=== PATIENT | male | born 1960 | race American Indian/Alaskan Native ===

== ENCOUNTER 2016-03-05 03:27 | Inpatient (IN) | payer MEDICARE ==
--- NOTE | 2016-03-05 03:36 | Emergency Department Report ---
HPI - General Time Seen by Provider: 03/05/16 03:30 - HPI HPI: Room 23 Patient is a male brought in for bleeding from dialysis access site. The patient states he was in his car when he suddenly began bleeding from his left upper extremity fistula. The patient states it has not been used for approximately one week as his current access is now in his left groin. EMS states they believe the gastroenterology nurse practitioner called them and they found the patient in his car with a large amount of blood coming from his left upper extremity. The site was dressed and bleeding was controlled. Location: Left upper extremity Duration: Unknown Quality: [see above] Severity: Moderate Modifying factors: [see above] Context: [see above] Mode of transportation: EMS ED Past Medical Hx - Past Medical History Hx Hypertension: Yes Hx Congestive Heart Failure: Yes Hx Renal Disease: Yes (end-stage renal disease) - Family History Family history: no significant - Social History Substance Use Type: None ED Review of Systems ROS: Stated complaint: GENERAL WEAKNESS Other details as noted in HPI Comment: All other systems reviewed and negative Constitutional: denies: chills, fever Eyes: denies: eye pain, eye discharge, vision change ENT: denies: ear pain, throat pain Respiratory: denies: cough, shortness of breath, wheezing Cardiovascular: denies: chest pain, palpitations Endocrine: no symptoms reported Gastrointestinal: denies: abdominal pain, nausea, diarrhea Genitourinary: denies: urgency, dysuria Musculoskeletal: denies: back pain, joint swelling, arthralgia Skin: other (bleeding from left upper extremity fistula) Neurological: denies: headache, weakness, paresthesias Psychiatric: denies: anxiety, depression Hematological/Lymphatic: denies: easy bleeding, easy bruising Physical Exam - Physical Exam Physical Exam: GENERAL: The patient is well-developed well-nourished male lying on stretcher not appear to be in acute distress. [] HEENT: Normocephalic. Atraumatic. Extraocular motions are intact. Patient has moist mucous membranes. NECK: Supple. Trachea midline CHEST/LUNGS: Clear to auscultation. There is no respiratory distress noted. HEART/CARDIOVASCULAR: Regular. There is no tachycardia. There is no gallop rub or murmur. ABDOMEN: Abdomen is soft, nontender. Patient has normal bowel sounds. There is no abdominal distention. SKIN: There is no rash. There is no edema. There is no diaphoresis. Left upper extremity dressing removed to reveal hemostatic lesion overlying the left upper extremity fistula. He'll a stat was placed over the wound and left upper extremity was redressed with gauze NEURO: The patient is awake and oriented. The patient is cooperative. The patient has normal speech MUSCULOSKELETAL: There is no evidence of acute injury. ED Course - Consultations Consultation #1: 03/05/16 05:32 Case discussed with nephrology/ Dr. Rincon-will arrange for hemodialysis Consultation #2: 03/05/16 05:33 Hospitalist notified ED Medical Decision Making - Lab Data Result diagrams: 03/05/16 03:37 03/05/16 03:37 Laboratory Tests 03/05/16 03/05/16 03/05/16 03:37 03:37 03:37 WBC 3.4 L RBC 2.81 L Hgb 7.8 L Hct 23.7 L MCV 84 MCH 28 MCHC 33 RDW 18.3 H Plt Count 136 L Lymph % (Auto) 20.6 Sampson % (Auto) 16.0 H Eos % (Auto) 8.9 H Baso % (Auto) 1.3 Lymph # 0.7 L Sampson # 0.5 Eos # 0.3 Baso # 0.0 Seg Neutrophils % 53.2 Seg Neutrophils # 1.8 PT 13.6 INR 1.05 APTT 40.6 H Sodium 141 Potassium 6.9 H* Chloride 96.5 L Carbon Dioxide 21 L Anion Gap 30 BUN 109 H Creatinine 20.3 H Estimated GFR 3 BUN/Creatinine Ratio 5.36 Glucose 91 Calcium 8.5 Plasma/Serum Alcohol 03/05/16 03:37 WBC RBC Hgb Hct MCV MCH MCHC RDW Plt Count Lymph % (Auto) Sampson % (Auto) Eos % (Auto) Baso % (Auto) Lymph # Sampson # Eos # Baso # Seg Neutrophils % Seg Neutrophils # PT INR APTT Sodium Potassium Chloride Carbon Dioxide Anion Gap BUN Creatinine Estimated GFR BUN/Creatinine Ratio Glucose Calcium Plasma/Serum Alcohol < 0.01 - EKG Data -: EKG Interpreted by [place] EKG shows normal: sinus rhythm Rate: normal - EKG Data When compared to previous EKG there are: previous EKG unavailable Interpretation: nonspecific ST-T wave jarret (slightly peaked T waves laterally) - Differential Diagnosis hypovolemia, coagulopathy Critical care attestation.: If time is entered above; I have spent that time in minutes in the direct care of this critically ill patient, excluding procedure time. ED Disposition Clinical Impression: Renal dialysis device, implant, or graft complication, Hyperkalemia, End stage renal disease Disposition: OP ADMITTED IP TO THIS HOSP Is pt being admited?: Yes Does the pt Need Aspirin: No Condition: Stable Referrals: PRIMARY CARE, [Primary Care Provider] - 3-5 Days Time of Disposition: 05:05 (awaiting nephrology callback)
[2016-03-05 03:50] LABS: Basophils % (Auto) 1.3 % (0.0-1.8); Eosinophils % (Auto) 8.9 % (0.0-4.3); Hematocrit 23.7 % (35.5-45.6); Hemoglobin 7.8 gm/dl (11.8-15.2); Mean Corpuscular HGB Conc 33 % (32-34); Mean Corpuscular Hemoglobin 28 pg (28-32); Mean Corpuscular Volume 84 fl (84-94); Platelet Count 136 K/mm3 (140-440); Red Blood Count 2.81 M/mm3 (3.65-5.03); Red Cell Distribution Width 18.3 % (13.2-15.2); White Blood Count 3.4 K/mm3 (4.5-11.0)
[2016-03-05 04:02] LABS: BUN/Creatinine Ratio 5.36; Calcium 8.5 mg/dL (8.4-10.2); Chloride 96.5 mmol/L (98-107); INR 1.05 (0.87-1.13)
[2016-03-05 04:03] LABS: Partial Thromboplastin Time 40.6 Sec. (24.2-36.6)
[2016-03-05 04:08] LABS: Potassium 6.9 mmol/L (3.6-5.0)
[2016-03-05] MEDS ORDERED: CALCIUM GLUCONATE 1,000 MG in NACL 0.9% 100 ML IV ONE (04:09)
[2016-03-05] MEDS ORDERED: SODIUM BICARBONATE IV ONE ×2 (04:09→04:17)
[2016-03-05] MEDS ORDERED: D50W (25GM) IV ONE ×4 (04:11→08:00)
[2016-03-05] MEDS ORDERED: PROVENTIL IH ONE (05:02)
--- NOTE | 2016-03-05 05:48 | History and Physical Report ---
History of Present Illness Date of examination: 03/05/16 Chief complaint: left arm bleeding History of present illness: Patient is a 55-year-old man with a history of end-stage renal disease on hemodialysis, hypertension, CHF and anemia of chronic disease who presents with left arm hemodialysis site bleeding that started today. He denies any severe arm pains or pressure. He has severe constant bleeding without any systemic symptoms such as loss of consciousness, severe headaches chest pain. He does have mild shortness of breath with minimal activity. He has not had hemodialysis since his discharge on 02/14/2016. He was admitted on 01/17/2016 discharge on 02/14/2016. Hemoglobin at that time was 7.9. Patient has 2 medical record numbers and account numbers. Which has not been merged in this system. Please refer to for prior records and hospitalizations. Past History Past Medical History: other (as hpi) Past Surgical History: Other (av graft) Social history: full code. denies: smoking, alcohol abuse, prescription drug abuse, IV drug use Family history: hypertension Medications and Allergies Allergies Allergy/AdvReac Type Severity Reaction Status Date / Time No Known Allergies Allergy Unverified 03/05/16 03:53 Review of Systems All systems: negative (as HPI and all other ROS reviewed and negative.) Exam - Physical Exam Narrative exam: GEN: WDWN, NAD, AWAKE, ALERT, ORIENTATED 3 HEENT: NCAT, PERRL, EOMI, OP CLEAR NECK: SUPPLE, NO THYROMEGALY, NO JVD, NO LAD CVS: RRR, NORMAL S1S2 LUNGS/CHEST: Basilar crackles, NORMAL CHEST EXPANSION B, diminish AIR ENTRY B ABD: SOFT NTND, GBS, NO REBOUND OR GUARDING, left femoral Vas-Cath in place EXT/SKIN: NO SIGNIFICANT EDEMA OR RASH, left upper arm gauzes dressing applied without bloody discharge MSK: FROM X 4 EXTREMITIES NEURO: CN 2-12 GROSSLY INTACT, NO FOCAL DEFICITS PSY: CALM - Constitutional Vitals: Temp Pulse Resp BP Pulse Ox 97.5 F L 95 H 24 169/99 100 03/05/16 03:32 03/05/16 05:23 03/05/16 05:23 03/05/16 05:00 03/05/16 05:00 Results - Labs CBC & Chem 7: 03/05/16 03:37 03/05/16 03:37 Labs: Abnormal lab results 03/05/16 03/05/16 03/05/16 Range/Units 03:37 03:37 03:37 WBC 3.4 L (4.5-11.0) K/mm3 RBC 2.81 L (3.65-5.03) M/mm3 Hgb 7.8 L (11.8-15.2) gm/dl Hct 23.7 L (35.5-45.6) % RDW 18.3 H (13.2-15.2) % Plt Count 136 L (140-440) K/mm3 [place] % (Auto) 16.0 H (0.0-7.3) % Eos % (Auto) 8.9 H (0.0-4.3) % Lymph # 0.7 L (1.2-5.4) K/mm3 APTT 40.6 H (24.2-36.6) Sec. Potassium 6.9 H* (3.6-5.0) mmol/L Chloride 96.5 L (98-107) mmol/L Carbon Dioxide 21 L (22-30) mmol/L BUN 109 H (9-20) mg/dL Creatinine 20.3 H (0.8-1.5) mg/dL - Imaging and Cardiology EKG: image reviewed Assessment and Plan Patient is a 55-year-old man with a history of end-stage renal disease on hemodialysis, hypertension, CHF and anemia of chronic disease who presents with left arm hemodialysis site bleeding that started today. He denies any severe arm pains or pressure. He has severe constant bleeding without any systemic symptoms such as loss of consciousness, severe headaches, chest pain. Bleeding was controlled with guazes dressing. He does have mild shortness of breath with minimal activity. He has not had hemodialysis since his discharge on 2015. He was admitted on 01/17/2016 discharge on 02/14/2016. Hemoglobin at that time was 7.9. Patient has 2 medical record numbers and account numbers. Which has not been merged in this system. Please refer to for prior records and hospitalizations. 02/10/16: REPAIR OF RUPTURED PSEUDOANEURYSM, PLACEMENT OF LEFT COMMON FEMORAL VEIN VAS-CATH and 02/11 1. Ultrasound-guided access of the right common femoral vein 2. Fluoroscopic-guided placement of a 5 Stateless sheath in the right common femoral vein, 3. Venography of the right lower extremity 4. Ultrasound-guided access of the left common femoral vein 5. Venography of the left lower extremity. 6. Venography of the with selection of the IVC 7. Angioplasty of the infrarenal, suprarenal, intrahepatic, and suprahepatic portions of the inferior vena cava, left common iliac vein, left external iliac vein with a 12 mm angioplasty balloon. 8. Venography of the superior vena cava was selection of the superior vena cava 8. Selection of an azygos vein collateral extending to the neck with venography 9. Ultrasound-guided access of the right internal jugular vein 10. Venography of the right internal jugular vein 11. Fluoroscopic guided placement of a 44 cm tip to cuff tunneled left common femoral vein dual lumen hemodialysis catheter 12. Fluoroscopic guided removal of the left common femoral vein non-tunneled non-cuffed triple lumen hemodialysis catheter 1. End-stage renal disease needing hemodialysis. Fluid overload 2. Hyperkalemia: Cocktail plus Calcium given 3. Accelerated hypertension: IV hydralazine 4. Acute blood loss anemia from hemodialysis access malfunctioning: Consult Dr. Arriaga, transfuse 1 unit, monitor h/h closely 5. Pancytopenia 6. DVT prophylaxis: SCDs only due to the blood loss which appears to be controlled Full code Disposition: Inpatient care The high probability of a clinically significant, sudden or life threatening deterioration of the [neurologic,cardiac] system(s) required my full and direct attention, intervention and personal management. The aggregate critical care time was [ 35 ] minutes. This time is in addition to time spent performing reported procedures but includes the following: [x] Data Review and interpretation [x] Patient assessment and monitoring of vital signs [x] Documentation [x] Medication orders and management
[2016-03-05] MEDS ORDERED: TYLENOL PO PRN (06:07)
[2016-03-05] MEDS ORDERED: PROVENTIL IH PRN (06:08)
[2016-03-05 07:20] LABS: BUN/Creatinine Ratio 5.63; Calcium 8.1 mg/dL (8.4-10.2)
[2016-03-05 07:21] LABS: Potassium 5.9 mmol/L (3.6-5.0)
--- NOTE | 2016-03-05 07:56 | Admit Criteria Form ---
Admission Criteria Documentation: RENAL FAILURE, CHRONIC Clinical Indications for Admission to Inpatient Care (Place 'X' for any and all applicable criteria): Admission is indicated for ANY ONE of the following (1)(2)(3)(4)(5): [X ]I. Inpatient admission required rather than observation care (Use Renal Failure, Chronic: Observation Care Criteria as appropriate) because of ANY ONE of the following: [ ]a) Volume overload or uremic symptoms (eg, clinically significant pulmonary edema, hypertension, pericarditis, acidosis) too severe for, or not responsive (eg, for over 24 hours) to emergency department or observation care dialysis or treatment regimen (11) [ ]b) Hemodynamic instability that is severe or persistent [ ]c) Respiratory distress that is severe or persistent (11) [ X]d) Clinically significant electrolyte abnormality that requires inpatient care (eg,hyperkalemia with severe ECG findings)[B] [ ]e) Supplement O2 or respiratory therapy for over 24hrs that is performable only in acute inpatient setting [ ]f) Continuous IV infusion of anticoagulation, platelet inhibitor, vasoactive, or Antiarrhythmic medication (15), [ ]g) Pulmonary artery catheter monitoring [ ]h) Temporary pacemaker placement [ ]i) Emergent pericardiocentesis [ ]j) Other condition, treatment or monitoring requiring inpatient admission [ ]II. Unexplained syncope [A] [ ]III. Recurrent seizures [ ]IV. Severe infections not treatable in outpatient setting (eg, peritonitis)(9 ) [ ]V. Cardiac arrhythmias of immediate concern [ ]. Encephalopathy [ ]VII.Bleeding abnormalities (eg, platelet dysfunction) with active (eg, gastrointestinal) bleeding Extended stay beyond goal length of stay may be needed for (3)(4)(35)(36): [ ]a) Continuing uremic complications [ ]b) Comorbidities or complications The original [employer] content created by [employer] has been revised. The portions of the content which have been revised are identified through the use of italic text or in bold, and [facility] has neither reviewed nor approved the modified material. All other unmodified content is copyright [employer]. Please see references footnoted in the original [facility] edition 2016 Admission Criteria Met: Yes
--- NOTE | 2016-03-05 09:22 | Consultation ---
History of Present Illness - Reason for Consult Consult date: 03/05/16 Bleeding AV graft - History of Present Illness Patient is a 55-year-old male with a history of end-stage renal disease who presents with recurrent bleeding from his left upper extremity fistula. 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 The fistula at that time was allowed to thrombose. Evaluation of the fistula today demonstrates thrombus throughout the fistula with 20 along the inferior aspect of the fistula which may be allowing a trickle of flow through the fistula. There is no bleeding at the time of examination. The pseudoaneurysm appears necrotic. A pressure dressing was reapplied. No distal hand ischemia. Past History Past Medical History: dialysis, ESRD, other (as hpi) Past Surgical History: Other (av graft) Social history: full code. denies: smoking, alcohol abuse, prescription drug abuse, IV drug use Family history: hypertension Medications and Allergies Allergies Allergy/AdvReac Type Severity Reaction Status Date / Time No Known Allergies Allergy Unverified 03/05/16 03:53 Active Meds: Active Medications Acetaminophen (Tylenol) 650 mg PO Q6H PRN PRN Reason: Non Cardiac Pain or Temp>100.5 Albuterol (Proventil) 2.5 mg IH Q4HRT PRN PRN Reason: Shortness Of Breath Hydralazine HCl (Apresoline) 10 mg IV Q4H PRN PRN Reason: Blood Pressure Ondansetron HCl (Zofran) 4 mg IV Q4H PRN PRN Reason: Nausea And Vomiting Review of Systems All systems: negative Exam - Constitutional Vitals: Temp Pulse Resp BP Pulse Ox 97.5 F L 95 H 24 182/102 99 03/05/16 03:32 03/05/16 05:23 03/05/16 05:23 03/05/16 06:00 03/05/16 06:00 General appearance: Present: no acute distress - EENT Eyes: Present: EOM intact ENT: hearing intact - Neck Neck: Present: supple, normal ROM - Respiratory Respiratory effort: normal - Extremities Extremities: abnormal (per HPI) - Abdominal General gastrointestinal: Present: deferred Male genitourinary: Present: deferred - Rectal Rectal Exam: deferred - Psychiatric Psychiatric: cooperative Results - Labs CBC & Chem 7: 03/05/16 03:37 03/05/16 06:41 Labs: Abnormal lab results 03/05/16 03/05/16 Range/Units 06:31 06:41 Potassium 5.9 H (3.6-5.0) mmol/L Carbon Dioxide 21 L (22-30) mmol/L BUN 107 H (9-20) mg/dL Creatinine 19.0 H (0.8-1.5) mg/dL Glucose 135 H (75-100) mg/dL POC Glucose 44 L (70-105) Calcium 8.1 L (8.4-10.2) mg/dL Assessment and Plan Patient with recurrent bleeding from his left upper extremity fistula at the site of the pseudoaneurysm. The patient will need surgical removal of this pseudoaneurysm versus ligation to prevent recurrent bleeds. [place] not bleeding The pseudoaneurysm surface appears necrotic. Would recommend initiation of IV antibiotics.
--- NOTE | 2016-03-05 09:25 | Consultation ---
History of Present Illness - Reason for Consult Consult date: 03/05/16 end stage renal disease, hyperkalemia - History of Present Illness Patient is a 55 yo AAM with a history significant for Hypertension, ESRD on hemodialysis for the past 12 yrs, CHF and Anemia who presents with left arm AV fistula bleeding that started on the day of admission. 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 Patient was evaluated by during this admission. He do not have a established hemodialysis unit due to long standing medical non- compliance. according to the previous admission notes he was setup for home hospice. He was last dialyzed on 02/26/16 at [facility]. Patient reports exertional SOB. No h/o PRETTY, N, V, D, abd pain, fever, trauma, dizziness , CP or leg swelling. Patient has 2 medical record numbers and account numbers , which has not been merged in this system. Please also refer to for prior records and hospitalizations. Past History Past Medical History: anemia, dialysis, ESRD, hypertension, other (as hpi) Past Surgical History: Other (av graft) Social history: full code. denies: smoking, alcohol abuse, prescription drug abuse, IV drug use Family history: hypertension Medications and Allergies Allergies Allergy/AdvReac Type Severity Reaction Status Date / Time No Known Allergies Allergy Unverified 03/05/16 03:53 Active Meds: Active Medications Acetaminophen (Tylenol) 650 mg PO Q6H PRN PRN Reason: Non Cardiac Pain or Temp>100.5 Albuterol (Proventil) 2.5 mg IH Q4HRT PRN PRN Reason: Shortness Of Breath Hydralazine HCl (Apresoline) 10 mg IV Q4H PRN PRN Reason: Blood Pressure Ondansetron HCl (Zofran) 4 mg IV Q4H PRN PRN Reason: Nausea And Vomiting Review of Systems Constitutional: no weight loss, no weight gain, no fever, no chills, no weakness Ears, nose, mouth and throat: no sinus pressure, no sinus pain, no epistaxis Cardiovascular: dyspnea on exertion, no chest pain, no orthopnea, no edema, no syncope, no lightheadedness Respiratory: dyspnea on exertion, no cough, no shortness of breath Gastrointestinal: no nausea, no vomiting, no diarrhea Genitourinary Male: no hematuria Musculoskeletal: no redness of joints Integumentary: no jaundice Neurological: no paralysis, no seizures, no syncope Hematologic/Lymphatic: no easy bruising Allergic/Immunologic: no anaphylaxis Exam - Vital Signs Vital signs: Vital Signs Pulse Resp 97 H 10 L 03/05/16 03:26 03/05/16 03:26 - General Appearance General appearance: well-developed, well-nourished, appears stated age, other ( no distress, left groin hemodialysis catheter) EENT: PERRL, mucous membranes moist, hearing intact, vision intact Neck: Present: neck supple, trachea midline Respiratory: Rales, Other (fullness over both supraclavicular areas, dilated veins over the left side of the back) Heart: regular, S1S2, no murmurs Gastrointestinal: Present: normoactive bowel sounds. Absent: tenderness, distended, guarding Integumentary: no rash, warm and dry Neurologic: no focal deficit, no asterixis, alert and oriented x3, CN 3-12 intact Musculoskeletal: Present: other (no edema) Psychiatric: mood/affect appropriate, cooperative Results - Lab Results 03/05/16 03:37 03/05/16 06:41 Most recent lab results Calcium 8.1 mg/dL (8.4-10.2) L 03/05/16 06:41 Assessment and Plan - Patient Problems (1) Hyperkalemia Current Visit: Yes Status: Acute Plan to address problem: Hemodialysis orders placed. Compliance encouraged. (2) End stage renal disease Current Visit: Yes Status: Acute Plan to address problem: Patient require hemodialysis threee times a week. Discussed compliance. Not sure if any of the hemodialysis units will take him. (3) Renal dialysis device, implant, or graft complication Current Visit: Yes Status: Acute Plan to address problem: Evaluated by . (4) Anemia Current Visit: Yes Status: Acute Plan to address problem: Epogen as needed. (5) Hypertension Current Visit: Yes Status: Acute (6) Non-compliance with renal dialysis Current Visit: Yes Status: Acute
[2016-03-05] MEDS ORDERED: NACL 0.9% 1000 ML 100 ML IV PRN (09:43)
[2016-03-05] MEDS ORDERED: ZEMPLAR IV PRN (09:43)
[2016-03-05] MEDS: HEPARIN IV PRN (13:42)
[2016-03-06 07:20] LABS: Hemoglobin 6.1 gm/dl (11.8-15.2); Mean Corpuscular HGB Conc 31 % (32-34); Mean Corpuscular Volume 84 fl (84-94); Platelet Count 117 K/mm3 (140-440); Red Blood Count 2.35 M/mm3 (3.65-5.03); Red Cell Distribution Width 17.9 % (13.2-15.2)
[2016-03-06 07:31] LABS: Mean Corpuscular Hemoglobin 26 pg (28-32); White Blood Count 2.2 K/mm3 (4.5-11.0)
[2016-03-06 07:32] LABS: Hematocrit 19.7 % (35.5-45.6)
[2016-03-06] MEDS ORDERED: NACL 0.9% 500 ML 500 ML IV ONE (07:38)
[2016-03-06 07:39] LABS: BUN/Creatinine Ratio 3.63; Calcium 8.5 mg/dL (8.4-10.2); Chloride 98.1 mmol/L (98-107); Potassium 5.3 mmol/L (3.6-5.0)
[2016-03-06] MEDS: APRESOLINE IV PRN ×2 (08:47→14:57)
[2016-03-06 08:53] LABS: Blastocytes % (Manual) 0 %; Hypochromasia 1+
[2016-03-06 08:54] LABS: Anisocytosis 1+; Diff Status Complete; Platelet Estimate Appears Decreased
--- NOTE | 2016-03-06 10:14 | Progress Note ---
Assessment and Plan Assessment and plan: Severe anemia - Multifactorial - Transfuse 2 units of blood - Monitor H&H closely - Monitor for active bleeding Bleeding from any fistula site/ ruptured pseudoaneurysm, necrotic - Patient is on IV cefepime and vancomycin - Vascular surgery consulted - Not visible active bleeding End-stage renal disease on hemodialysis - Nephrology is on board History Interval history: Patient denied any further bleeding Hospitalist Physical - Physical exam Narrative exam: Not in cardiopulmonary distress. The patient appeared well nourished and normally developed. Vital signs as documented. Head exam is unremarkable. No scleral icterus . Neck is without jugular venous distension, thyromegaly, or carotid bruits. Lungs are clear to auscultation. Cardiac exam reveals regular rate and Rhythm. First and second heart sounds normal. No murmurs, rubs or gallops. Abdominal exam reveals normal bowel sounds, no masses, no organomegaly and no aortic enlargement. Extremities are nonedematous and both femoral and pedal pulses are normal. MOVERS: Alert and oriented 3. No focal weakness. - Constitutional Vitals: Temp Pulse Resp BP Pulse Ox 98.6 F 94 H 20 183/104 94 03/06/16 04:57 03/06/16 04:57 03/06/16 04:57 03/06/16 08:47 03/06/16 04:57 General appearance: Present: no acute distress Results - Labs CBC & Chem 7: 03/06/16 06:38 03/06/16 06:38 Labs: Laboratory Last Values WBC 2.2 K/mm3 (4.5-11.0) L 03/06/16 06:38 RBC 2.35 M/mm3 (3.65-5.03) L 03/06/16 06:38 Hgb 6.1 gm/dl (11.8-15.2) L 03/06/16 06:38 Hct 19.7 % (35.5-45.6) L* 03/06/16 06:38 MCV 84 fl (84-94) 03/06/16 06:38 MCH 26 pg (28-32) L 03/06/16 06:38 MCHC 31 % (32-34) L 03/06/16 06:38 RDW 17.9 % (13.2-15.2) H 03/06/16 06:38 Plt Count 117 K/mm3 (140-440) L 03/06/16 06:38 Lymph % (Auto) 20.6 % (13.4-35.0) 03/05/16 03:37 [place] % (Auto) Efficiency Expert 03/06/16 06:38 Eos % (Auto) 8.9 % (0.0-4.3) H 03/05/16 03:37 Baso % (Auto) 1.3 % (0.0-1.8) 03/05/16 03:37 Lymph # 0.7 K/mm3 (1.2-5.4) L 03/05/16 03:37 [place] # 0.5 K/mm3 (0.0-0.8) 03/05/16 03:37 Eos # 0.3 K/mm3 (0.0-0.4) 03/05/16 03:37 Baso # 0.0 K/mm3 (0.0-0.1) 03/05/16 03:37 Add Manual Diff Complete 03/06/16 06:38 Total Counted 100 03/06/16 06:38 Seg Neutrophils % 53.2 % (40.0-70.0) 03/05/16 03:37 Seg Neuts % (Manual) 60.0 % (40.0-70.0) 03/06/16 06:38 Band Neutrophils % 0 % 03/06/16 06:38 Lymphocytes % (Manual) 13.0 % (13.4-35.0) L 03/06/16 06:38 Reactive Lymphs % (Man) 0 % 03/06/16 06:38 Monocytes % (Manual) 14.0 % (0.0-7.3) H 03/06/16 06:38 Eosinophils % (Manual) 11.0 % (0.0-4.3) H 03/06/16 06:38 Metamyelocytes % 1.0 % 03/06/16 06:38 Myelocytes % 1.0 % 03/06/16 06:38 Promyelocytes % 0 % 03/06/16 06:38 Blast Cells % 0 % 03/06/16 06:38 Nucleated RBC % Not Reportable 03/06/16 06:38 Seg Neutrophils # 1.8 K/mm3 (1.8-7.7) 03/05/16 03:37 Seg Neutrophils # Man 1.3 K/mm3 (1.8-7.7) L 03/06/16 06:38 Band Neutrophils # 0.0 K/mm3 03/06/16 06:38 Lymphocytes # (Manual) 0.3 K/mm3 (1.2-5.4) L 03/06/16 06:38 Abs React Lymphs (Man) 0.0 K/mm3 03/06/16 06:38 Monocytes # (Manual) 0.3 K/mm3 (0.0-0.8) 03/06/16 06:38 Eosinophils # (Manual) 0.2 K/mm3 (0.0-0.4) 03/06/16 06:38 Basophils # (Manual) 0.0 K/mm3 (0.0-0.1) 03/06/16 06:38 Metamyelocytes # 0.0 K/mm3 03/06/16 06:38 Myelocytes # 0.0 K/mm3 03/06/16 06:38 Promyelocytes # 0.0 K/mm3 03/06/16 06:38 Blast Cells # 0.0 K/mm3 03/06/16 06:38 WBC Morphology Not Reportable 03/06/16 06:38 Hypersegmented Neuts Not Reportable 03/06/16 06:38 Hyposegmented Neuts Not Reportable 03/06/16 06:38 Hypogranular Neuts Not Reportable 03/06/16 06:38 Smudge Cells Not Reportable 03/06/16 06:38 Toxic Granulation Not Reportable 03/06/16 06:38 Toxic Vacuolation Not Reportable 03/06/16 06:38 Dohle Bodies Not Reportable 03/06/16 06:38 Pelger-Huet Anomaly Not Reportable 03/06/16 06:38 Jimbo Rods Not Reportable 03/06/16 06:38 Platelet Estimate Appears decreased 03/06/16 06:38 Clumped Platelets Not Reportable 03/06/16 06:38 Plt Clumps, EDTA Not Reportable 03/06/16 06:38 Large Platelets Not Reportable 03/06/16 06:38 Giant Platelets Not Reportable 03/06/16 06:38 Platelet Satelliting Not Reportable 03/06/16 06:38 Plt Morphology Comment Not Reportable 03/06/16 06:38 RBC Morphology Not Reportable 03/06/16 06:38 Dimorphic RBCs Not Reportable 03/06/16 06:38 Polychromasia Not Reportable 03/06/16 06:38 Hypochromasia 1+ 03/06/16 06:38 Poikilocytosis Not Reportable 03/06/16 06:38 Anisocytosis 1+ 03/06/16 06:38 Microcytosis Not Reportable 03/06/16 06:38 Macrocytosis Not Reportable 03/06/16 06:38 Spherocytes Not Reportable 03/06/16 06:38 Pappenheimer Bodies Not Reportable 03/06/16 06:38 Sickle Cells Not Reportable 03/06/16 06:38 Target Cells Not Reportable 03/06/16 06:38 Tear Drop Cells Not Reportable 03/06/16 06:38 Ovalocytes Not Reportable 03/06/16 06:38 Helmet Cells Not Reportable 03/06/16 06:38 [place] Bodies Not Reportable 03/06/16 06:38 [place] Rings Not Reportable 03/06/16 06:38 [place] Cells Not Reportable 03/06/16 06:38 Bite Cells Not Reportable 03/06/16 06:38 Crenated Cell Not Reportable 03/06/16 06:38 Elliptocytes Not Reportable 03/06/16 06:38 Acanthocytes (Spur) Not Reportable 03/06/16 06:38 Rouleaux Not Reportable 03/06/16 06:38 Hemoglobin C Crystals Not Reportable 03/06/16 06:38 Schistocytes Not Reportable 03/06/16 06:38 Malaria parasites Not Reportable 03/06/16 06:38 Venkat Bodies Not Reportable 03/06/16 06:38 Hem Pathologist Commnt No 03/06/16 06:38 PT 13.6 Sec. (12.2-14.9) 03/05/16 03:37 INR 1.05 (0.87-1.13) 03/05/16 03:37 APTT 40.6 Sec. (24.2-36.6) H 03/05/16 03:37 Sodium 141 mmol/L (137-145) 03/06/16 06:38 Potassium 5.3 mmol/L (3.6-5.0) H 03/06/16 06:38 Chloride 98.1 mmol/L (98-107) 03/06/16 06:38 Carbon Dioxide 24 mmol/L (22-30) 03/06/16 06:38 Anion Gap 24 mmol/L 03/06/16 06:38 BUN 52 mg/dL (9-20) H 03/06/16 06:38 Creatinine 14.3 mg/dL (0.8-1.5) H 03/06/16 06:38 Estimated GFR 4 ml/min 03/06/16 06:38 BUN/Creatinine Ratio 3.63 % 03/06/16 06:38 Glucose 68 mg/dL (75-100) L 03/06/16 06:38 POC Glucose 44 (70-105) L 03/05/16 06:31 Calcium 8.5 mg/dL (8.4-10.2) 03/06/16 06:38 Plasma/Serum Alcohol < 0.01 gm% (0-0.07) 03/05/16 03:37 Blood Type O POSITIVE 03/05/16 03:37 Antibody Screen Negative 03/05/16 03:37
[2016-03-06] MEDS ORDERED: NACL 0.9% 1000 ML 100 ML IV PRN (12:16)
--- NOTE | 2016-03-06 12:19 | Progress Note ---
Assessment and Plan - Patient Problems (1) Hyperkalemia Current Visit: Yes Status: Acute Plan to address problem: Patient was last dialyzed yesterday. Plan to do hemodialysis today. (2) End stage renal disease Current Visit: Yes Status: Acute Plan to address problem: Continue hemodialysis as planned. (3) Renal dialysis device, implant, or graft complication Current Visit: Yes Status: Acute Plan to address problem: Followed by Vascular. (4) Anemia Current Visit: Yes Status: Acute Plan to address problem: 2 units of PRBC and Epogen. (5) Hypertension Current Visit: Yes Status: Acute (6) Non-compliance with renal dialysis Current Visit: Yes Status: Acute Plan to address problem: Compliance encouraged. Subjective Date of service: 03/06/16 Interval history: Patient is feeling better. Objective - Vital Signs Vital signs: Vital Signs - 12hr 03/06/16 03/06/16 03/06/16 04:57 08:00 08:47 Temperature 98.6 F 98.5 F Pulse Rate [ 94 H 90 From Monitor] Respiratory 20 20 Rate Blood Pressure 183/104 Blood Pressure 126/80 183/104 [Left Arm] O2 Sat by Pulse 94 96 Oximetry - General Appearance General appearance: well-developed, well-nourished, other (no distress) EENT: PERRL, mucous membranes moist, hearing intact, vision intact Neck: supple Respiratory: Present: Clear to Ascultation Cardiology: regular, S1S2, no murmurs Gastrointestinal: normoactive bowel sounds, no tenderness, no distended, no guarding Integumentary: no rash, warm and dry Neurologic: no focal deficit, no asterixis, alert and oriented x3, CN 3-12 intact Musculoskeletal: other (no edema, left groin hemodialysis catheter) Psychiatric: mood/affect appropriate, cooperative - Lab 03/06/16 06:38 03/06/16 06:38 Most recent lab results Calcium 8.5 mg/dL (8.4-10.2) 03/06/16 06:38
--- NOTE | 2016-03-06 15:49 | Progress Note ---
Assessment and Plan 55-year-old male with rupture of left AV access pseudoaneurysm requiring suturing in the emergency room with subsequent necrosis of the pseudoaneurysm and thrombosis of most of the AV access. There is a weak pulse noted in the proximal portion of the AV access. Dressing change to pressure dressing. Told nurses not to change this dressing. Consented for explantation on Tuesday. Subjective Date of service: 03/06/16 Principal diagnosis: AVF/AVG malfunction Interval history: Left AV graft/AV fistula site pseudoaneurysm necrotic. There has been strikethrough bleeding on the kerlex dressing overlying the site. This is not a compressive dressing. Replaced dressing with a right Telfa, 4 x 4's, and Coban. Left radial pulse palpable prior to dressing change and after dressing change. Patient describes no distress site after dressing placed. No pain at the site. Objective - Constitutional Vitals: Vital Signs - 12hr 03/06/16 03/06/16 03/06/16 04:57 08:00 08:47 Temperature 98.6 F 98.5 F Pulse Rate Pulse Rate [ 94 H 90 From Monitor] Respiratory 20 20 Rate Blood Pressure 183/104 Blood Pressure 126/80 183/104 [Left Arm] O2 Sat by Pulse 94 96 Oximetry 03/06/16 03/06/16 03/06/16 12:38 12:53 13:23 Temperature 98.1 F 97.9 F 97.9 F Pulse Rate 82 79 84 Pulse Rate [ From Monitor] Respiratory 16 16 16 Rate Blood Pressure 165/86 131/84 142/78 Blood Pressure [Left Arm] O2 Sat by Pulse 98 Oximetry 03/06/16 03/06/16 03/06/16 13:53 14:23 14:53 Temperature 98.1 F 98.2 F 97.9 F Pulse Rate 86 84 86 Pulse Rate [ From Monitor] Respiratory 16 16 16 Rate Blood Pressure 142/76 152/80 180/92 Blood Pressure [Left Arm] O2 Sat by Pulse Oximetry 03/06/16 14:57 Temperature Pulse Rate Pulse Rate [ From Monitor] Respiratory Rate Blood Pressure 180/92 Blood Pressure [Left Arm] O2 Sat by Pulse Oximetry General appearance: Present: no acute distress - EENT Eyes: EOM intact ENT: hearing intact - Respiratory Respiratory effort: normal Extremities: pulses intact (left radial pulses palpable), normal temperature, normal color Extremity abnormal: other (necrotic pseudoaneurysm.) - Labs CBC & Chem 7: 03/06/16 06:38 03/06/16 06:38 Labs: Abnormal lab results 03/06/16 03/06/16 03/06/16 Range/Units 06:38 06:38 08:57 WBC 2.2 L (4.5-11.0) K/mm3 RBC 2.35 L (3.65-5.03) M/mm3 Hgb 6.1 L (11.8-15.2) gm/dl Hct 19.7 L* (35.5-45.6) % MCH 26 L (28-32) pg MCHC 31 L (32-34) % RDW 17.9 H (13.2-15.2) % Plt Count 117 L (140-440) K/mm3 Lymphocytes % (Manual) 13.0 L (13.4-35.0) % Monocytes % (Manual) 14.0 H (0.0-7.3) % Eosinophils % (Manual) 11.0 H (0.0-4.3) % Seg Neutrophils # Man 1.3 L (1.8-7.7) K/mm3 Lymphocytes # (Manual) 0.3 L (1.2-5.4) K/mm3 Potassium 5.3 H (3.6-5.0) mmol/L BUN 52 H (9-20) mg/dL Creatinine 14.3 H (0.8-1.5) mg/dL Glucose 68 L (75-100) mg/dL Crossmatch See Detail
[2016-03-06] MEDS ORDERED: VANCOMYCIN PHARMACY TO DOSE IV SCH (16:00)
[2016-03-06] MEDS ORDERED: VANCOMYCIN/NS 1 GM/250 ML 250 ML IV ONE (17:00)
[2016-03-06] MEDS: HEPARIN IV PRN (19:16)
[2016-03-07] MEDS: MAXIPIME/NS 1 GM/100 ML 100 ML IV SCH ×3 (00:12→10:41)
[2016-03-07] MEDS ORDERED: VANCOMYCIN/NS 1 GM/250 ML 250 ML IV ONE (00:15)
--- NOTE | 2016-03-07 10:52 | Progress Note ---
Assessment and Plan Assessment and plan: Severe anemia - Multifactorial - Transfused 2 units of blood - waiting for the labs - Monitor H&H closely - Monitor for active bleeding Bleeding from any fistula site/ ruptured pseudoaneurysm, necrotic - Patient is on IV cefepime and vancomycin - Vascular surgery consulted - Not visible active bleeding - Exploration will be done tomorrow End-stage renal disease on hemodialysis - Nephrology is on board History Interval history: Patient denied any further bleeding Hospitalist Physical - Physical exam Narrative exam: Not in cardiopulmonary distress. The patient appeared well nourished and normally developed. Vital signs as documented. Head exam is unremarkable. No scleral icterus . Neck is without jugular venous distension, thyromegaly, or carotid bruits. Lungs are clear to auscultation. Cardiac exam reveals regular rate and Rhythm. First and second heart sounds normal. No murmurs, rubs or gallops. Abdominal exam reveals normal bowel sounds, no masses, no organomegaly and no aortic enlargement. Extremities are nonedematous and both femoral and pedal pulses are normal. ANIMAL ANATOMY TEACHER: Alert and oriented 3. No focal weakness. - Constitutional Vitals: Temp Pulse Resp BP Pulse Ox 98.8 F 92 H 20 158/94 94 03/07/16 07:58 03/07/16 07:58 03/07/16 07:58 03/07/16 07:58 03/07/16 07:58 General appearance: Present: no acute distress Results - Labs CBC & Chem 7: 03/06/16 06:38 03/06/16 06:38 Labs: Laboratory Last Values WBC 2.2 K/mm3 (4.5-11.0) L 03/06/16 06:38 RBC 2.35 M/mm3 (3.65-5.03) L 03/06/16 06:38 Hgb 6.1 gm/dl (11.8-15.2) L 03/06/16 06:38 Hct 19.7 % (35.5-45.6) L* 03/06/16 06:38 MCV 84 fl (84-94) 03/06/16 06:38 MCH 26 pg (28-32) L 03/06/16 06:38 MCHC 31 % (32-34) L 03/06/16 06:38 RDW 17.9 % (13.2-15.2) H 03/06/16 06:38 Plt Count 117 K/mm3 (140-440) L 03/06/16 06:38 Lymph % (Auto) 20.6 % (13.4-35.0) 03/05/16 03:37 [place] % (Auto) Chief Concierge 03/06/16 06:38 Eos % (Auto) 8.9 % (0.0-4.3) H 03/05/16 03:37 Baso % (Auto) 1.3 % (0.0-1.8) 03/05/16 03:37 Lymph # 0.7 K/mm3 (1.2-5.4) L 03/05/16 03:37 [place] # 0.5 K/mm3 (0.0-0.8) 03/05/16 03:37 Eos # 0.3 K/mm3 (0.0-0.4) 03/05/16 03:37 Baso # 0.0 K/mm3 (0.0-0.1) 03/05/16 03:37 Add Manual Diff Complete 03/06/16 06:38 Total Counted 100 03/06/16 06:38 Seg Neutrophils % 53.2 % (40.0-70.0) 03/05/16 03:37 Seg Neuts % (Manual) 60.0 % (40.0-70.0) 03/06/16 06:38 Band Neutrophils % 0 % 03/06/16 06:38 Lymphocytes % (Manual) 13.0 % (13.4-35.0) L 03/06/16 06:38 Reactive Lymphs % (Man) 0 % 03/06/16 06:38 Monocytes % (Manual) 14.0 % (0.0-7.3) H 03/06/16 06:38 Eosinophils % (Manual) 11.0 % (0.0-4.3) H 03/06/16 06:38 Metamyelocytes % 1.0 % 03/06/16 06:38 Myelocytes % 1.0 % 03/06/16 06:38 Promyelocytes % 0 % 03/06/16 06:38 Blast Cells % 0 % 03/06/16 06:38 Nucleated RBC % Not Reportable 03/06/16 06:38 Seg Neutrophils # 1.8 K/mm3 (1.8-7.7) 03/05/16 03:37 Seg Neutrophils # Man 1.3 K/mm3 (1.8-7.7) L 03/06/16 06:38 Band Neutrophils # 0.0 K/mm3 03/06/16 06:38 Lymphocytes # (Manual) 0.3 K/mm3 (1.2-5.4) L 03/06/16 06:38 Abs React Lymphs (Man) 0.0 K/mm3 03/06/16 06:38 Monocytes # (Manual) 0.3 K/mm3 (0.0-0.8) 03/06/16 06:38 Eosinophils # (Manual) 0.2 K/mm3 (0.0-0.4) 03/06/16 06:38 Basophils # (Manual) 0.0 K/mm3 (0.0-0.1) 03/06/16 06:38 Metamyelocytes # 0.0 K/mm3 03/06/16 06:38 Myelocytes # 0.0 K/mm3 03/06/16 06:38 Promyelocytes # 0.0 K/mm3 03/06/16 06:38 Blast Cells # 0.0 K/mm3 03/06/16 06:38 WBC Morphology Not Reportable 03/06/16 06:38 Hypersegmented Neuts Not Reportable 03/06/16 06:38 Hyposegmented Neuts Not Reportable 03/06/16 06:38 Hypogranular Neuts Not Reportable 03/06/16 06:38 Smudge Cells Not Reportable 03/06/16 06:38 Toxic Granulation Not Reportable 03/06/16 06:38 Toxic Vacuolation Not Reportable 03/06/16 06:38 Dohle Bodies Not Reportable 03/06/16 06:38 Pelger-Huet Anomaly Not Reportable 03/06/16 06:38 Jimbo Rods Not Reportable 03/06/16 06:38 Platelet Estimate Appears decreased 03/06/16 06:38 Clumped Platelets Not Reportable 03/06/16 06:38 Plt Clumps, EDTA Not Reportable 03/06/16 06:38 Large Platelets Not Reportable 03/06/16 06:38 Giant Platelets Not Reportable 03/06/16 06:38 Platelet Satelliting Not Reportable 03/06/16 06:38 Plt Morphology Comment Not Reportable 03/06/16 06:38 RBC Morphology Not Reportable 03/06/16 06:38 Dimorphic RBCs Not Reportable 03/06/16 06:38 Polychromasia Not Reportable 03/06/16 06:38 Hypochromasia 1+ 03/06/16 06:38 Poikilocytosis Not Reportable 03/06/16 06:38 Anisocytosis 1+ 03/06/16 06:38 Microcytosis Not Reportable 03/06/16 06:38 Macrocytosis Not Reportable 03/06/16 06:38 Spherocytes Not Reportable 03/06/16 06:38 Pappenheimer Bodies Not Reportable 03/06/16 06:38 Sickle Cells Not Reportable 03/06/16 06:38 Target Cells Not Reportable 03/06/16 06:38 Tear Drop Cells Not Reportable 03/06/16 06:38 Ovalocytes Not Reportable 03/06/16 06:38 Helmet Cells Not Reportable 03/06/16 06:38 [place] Bodies Not Reportable 03/06/16 06:38 [place] Rings Not Reportable 03/06/16 06:38 [place] Cells Not Reportable 03/06/16 06:38 Bite Cells Not Reportable 03/06/16 06:38 Crenated Cell Not Reportable 03/06/16 06:38 Elliptocytes Not Reportable 03/06/16 06:38 Acanthocytes (Spur) Not Reportable 03/06/16 06:38 Rouleaux Not Reportable 03/06/16 06:38 Hemoglobin C Crystals Not Reportable 03/06/16 06:38 Schistocytes Not Reportable 03/06/16 06:38 Malaria parasites Not Reportable 03/06/16 06:38 Venkat Bodies Not Reportable 03/06/16 06:38 Hem Pathologist Commnt No 03/06/16 06:38 PT 13.6 Sec. (12.2-14.9) 03/05/16 03:37 INR 1.05 (0.87-1.13) 03/05/16 03:37 APTT 40.6 Sec. (24.2-36.6) H 03/05/16 03:37 Sodium 141 mmol/L (137-145) 03/06/16 06:38 Potassium 5.3 mmol/L (3.6-5.0) H 03/06/16 06:38 Chloride 98.1 mmol/L (98-107) 03/06/16 06:38 Carbon Dioxide 24 mmol/L (22-30) 03/06/16 06:38 Anion Gap 24 mmol/L 03/06/16 06:38 BUN 52 mg/dL (9-20) H 03/06/16 06:38 Creatinine 14.3 mg/dL (0.8-1.5) H 03/06/16 06:38 Estimated GFR 4 ml/min 03/06/16 06:38 BUN/Creatinine Ratio 3.63 % 03/06/16 06:38 Glucose 68 mg/dL (75-100) L 03/06/16 06:38 POC Glucose 44 (70-105) L 03/05/16 06:31 Calcium 8.5 mg/dL (8.4-10.2) 03/06/16 06:38 Plasma/Serum Alcohol < 0.01 gm% (0-0.07) 03/05/16 03:37 Blood Type O POSITIVE 03/06/16 08:57 Antibody Screen Negative 03/06/16 08:57 Crossmatch See Detail 03/06/16 08:57
--- NOTE | 2016-03-07 11:34 | Progress Note ---
Assessment and Plan 55-year-old male with rupture of left AV access pseudoaneurysm requiring suturing in the emergency room with subsequent necrosis of the pseudoaneurysm and thrombosis of most of the AV access. There is a weak pulse noted in the proximal portion of the AV access. Dressing change to pressure dressing. Told nurses not to change this dressing. Patient refused labs. Discussed importance of labs. Amenable to having labs drawn. Consented for explantation on Tuesday. Subjective Date of service: 03/07/16 Principal diagnosis: AVF/AVG malfunction Interval history: No trikethrough bleeding with Telfa, 4 x 4's, and Coban dressing on left AV access. Left radial pulse palpable. Patient describes no distress site after dressing placed. No pain at the site. Objective - Constitutional Vitals: Vital Signs - 12hr 03/06/16 03/06/16 03/07/16 23:49 23:52 06:46 Temperature 99.4 F 98.9 F Pulse Rate 111 H Pulse Rate [ 97 H 92 H Right Radial] Respiratory 20 18 Rate Blood Pressure 130/75 152/89 [Right Arm] O2 Sat by Pulse Oximetry 03/07/16 07:58 Temperature 98.8 F Pulse Rate Pulse Rate [ 92 H Right Radial] Respiratory 20 Rate Blood Pressure 158/94 [Right Arm] O2 Sat by Pulse 94 Oximetry General appearance: Present: no acute distress - EENT Eyes: EOM intact ENT: hearing intact - Respiratory Respiratory effort: normal Extremities: pulses intact (left radial), normal temperature, normal color - Psychiatric Psychiatric: appropriate mood/affect, cooperative - Labs CBC & Chem 7: 03/06/16 06:38 03/06/16 06:38 Labs: Abnormal lab results 03/06/16 Range/Units 08:57 Crossmatch See Detail
--- NOTE | 2016-03-07 12:49 | Progress Note ---
Assessment and Plan - Patient Problems (1) End stage renal disease Current Visit: Yes Status: Acute Plan to address problem: Patient was last dialyzed yesterday. Plan to dialyze tomorrow. Outpatient hemodialysis chair setup. (2) Hyperkalemia Current Visit: Yes Status: Acute Plan to address problem: Improved with hemodialysis. (3) Renal dialysis device, implant, or graft complication Current Visit: Yes Status: Acute Plan to address problem: Vascular is following. (4) Anemia Current Visit: Yes Status: Acute Plan to address problem: S/p 2 units of PRBC and Epogen. (5) Hypertension Current Visit: Yes Status: Acute Plan to address problem: BP is fair. (6) Non-compliance with renal dialysis Current Visit: Yes Status: Acute Subjective Date of service: 03/07/16 Principal diagnosis: AVF/AVG malfunction Interval history: Patient is doing better. Objective - Vital Signs Vital signs: Vital Signs - 12hr 03/07/16 03/07/16 03/07/16 06:46 07:58 10:00 Temperature 98.9 F 98.8 F Pulse Rate 94 H Pulse Rate [ 92 H 92 H Right Radial] Respiratory 18 20 Rate Blood Pressure 152/89 158/94 [Right Arm] O2 Sat by Pulse 94 Oximetry - General Appearance General appearance: well-developed, well-nourished, other (no distress) EENT: PERRL, mucous membranes moist, hearing intact, vision intact Neck: supple Respiratory: Present: Clear to Ascultation Cardiology: regular, S1S2, no murmurs Gastrointestinal: normoactive bowel sounds, no tenderness, no distended, no guarding Integumentary: no rash, warm and dry Neurologic: no focal deficit, no asterixis, alert and oriented x3, CN 3-12 intact Musculoskeletal: other (no edema, left groin hemodialysis catheter) Psychiatric: mood/affect appropriate, cooperative - Lab 03/06/16 06:38 03/06/16 06:38 Most recent lab results Calcium 8.5 mg/dL (8.4-10.2) 03/06/16 06:38
[2016-03-07 16:18] LABS: Hematocrit 25.9 % (35.5-45.6); Hemoglobin 8.3 gm/dl (11.8-15.2); Mean Corpuscular HGB Conc 32 % (32-34); Mean Corpuscular Hemoglobin 28 pg (28-32); Mean Corpuscular Volume 86 fl (84-94); Platelet Count 119 K/mm3 (140-440); Red Blood Count 3.01 M/mm3 (3.65-5.03); Red Cell Distribution Width 17.5 % (13.2-15.2)
[2016-03-07 16:41] LABS: BUN/Creatinine Ratio 3.3; Calcium 8.7 mg/dL (8.4-10.2); Potassium 4.5 mmol/L (3.6-5.0)
[2016-03-07 16:54] LABS: Blastocytes % (Manual) 0 %
[2016-03-07 16:55] LABS: Anisocytosis 1+; Diff Status Complete; Hypochromasia 1+; Platelet Estimate Consistent w Auto
[2016-03-08 07:38] LABS: Basophils % (Auto) 0.7 % (0.0-1.8); Eosinophils % (Auto) 9.3 % (0.0-4.3); Hematocrit 23.7 % (35.5-45.6); Hemoglobin 7.5 gm/dl (11.8-15.2); Mean Corpuscular HGB Conc 32 % (32-34); Mean Corpuscular Hemoglobin 28 pg (28-32); Mean Corpuscular Volume 87 fl (84-94); Platelet Count 108 K/mm3 (140-440); Red Blood Count 2.74 M/mm3 (3.65-5.03); Red Cell Distribution Width 17.3 % (13.2-15.2); White Blood Count 2.9 K/mm3 (4.5-11.0)
[2016-03-08 07:46] LABS: BUN/Creatinine Ratio 3.25; Calcium 8.6 mg/dL (8.4-10.2); Chloride 97.1 mmol/L (98-107); Potassium 4.7 mmol/L (3.6-5.0)
--- NOTE | 2016-03-08 08:20 | Progress Note ---
Assessment and Plan - Patient Problems (1) End stage renal disease Current Visit: Yes Status: Acute Plan to address problem: Patient was last dialyzed 2 days ago. Plan to do hemodialysis tomorrow. d/w CM regarding outpatient hemodialysis chair setup. (2) Hyperkalemia Current Visit: Yes Status: Acute Plan to address problem: Improved. (3) Renal dialysis device, implant, or graft complication Current Visit: Yes Status: Acute Plan to address problem: Followed by Vascular. (4) Anemia Current Visit: Yes Status: Acute Plan to address problem: S/p PRBC Transfusion and epogen. (5) Hypertension Current Visit: Yes Status: Acute (6) Non-compliance with renal dialysis Current Visit: Yes Status: Acute Plan to address problem: Compliance encouraged. Subjective Date of service: 03/08/16 Principal diagnosis: AVF/AVG malfunction Interval history: Patient is feeling better. Objective - Vital Signs Vital signs: Vital Signs - 12hr 03/08/16 03/08/16 01:00 05:42 Temperature 98.9 F 97.6 F Pulse Rate [ 86 88 Right Radial] Respiratory 18 20 Rate Blood Pressure 149/90 148/68 [Right Arm] O2 Sat by Pulse 92 94 Oximetry - General Appearance General appearance: well-developed, well-nourished, other (no distress) EENT: PERRL, mucous membranes moist, hearing intact, vision intact Neck: no carotid bruit, supple Respiratory: Present: Clear to Ascultation Cardiology: regular, S1S2, no murmurs Gastrointestinal: normoactive bowel sounds, no tenderness, no distended, no guarding Integumentary: no rash, warm and dry Neurologic: no focal deficit, no asterixis, alert and oriented x3, CN 3-12 intact Musculoskeletal: other (no edema, left groin hemodialysis catheter) Psychiatric: mood/affect appropriate, cooperative - Lab 03/08/16 07:01 03/08/16 07:01 Most recent lab results Calcium 8.6 mg/dL (8.4-10.2) 03/08/16 07:01
--- NOTE | 2016-03-08 11:11 | Progress Note ---
Assessment and Plan Assessment and plan: --Bleeding from any fistula site/ ruptured pseudoaneurysm, necrotic AV fistula/AV graft malfunction Vascular evaluation and recommendations noted and appreciated Possible explanation tomorrow --End-stage renal disease on hemodialysis Patient will receive dialysis after aVF/AVG are prepared Supportive care nephrology following --Chronic anemia secondary to end-stage liver disease Status post 2 units of PRBC transfusion Closely monitor H&H and transfuse additional if needed --DVT prophylaxis with SCDs --Medical noncompliance with hemodialysis/medications Counseling done patient strongly advised to adhere to the treatment plan Verbalized understanding --Social issues Case management to assist with outpatient HD setup an DC planning when medically stable Plan of care discussed with the patient as well as the nurse Consults and recommendations noted and appreciated History Interval history: Patient seen and evaluated in his room this afternoon medical records reviewed Patient has no new complaints A-V fistula malfunctioning, vascular has evaluated the patient, possible exploration tomorrow Patient is alert awake oriented 3 not in acute distress Vital signs reviewed, stable Hospitalist Physical - Constitutional Vitals: Temp Pulse Resp BP Pulse Ox 98.2 F 83 18 147/96 92 03/08/16 08:00 03/08/16 08:00 03/08/16 08:00 03/08/16 08:00 03/08/16 08:00 General appearance: Present: no acute distress, well-nourished - EENT Eyes: Present: PERRL, EOM intact - Neck Neck: Present: supple, normal ROM - Respiratory Respiratory effort: normal Respiratory: bilateral: diminished, negative: rales, rhonchi, wheezing - Cardiovascular Rhythm: regular Heart Sounds: Present: S1 & S2 - Extremities Extremities: no ischemia, pulses intact Peripheral Pulses: within normal limits - Abdominal General gastrointestinal: soft, non-tender, non-distended, normal bowel sounds - Integumentary Integumentary: Present: clear, warm - Psychiatric Psychiatric: appropriate mood/affect, cooperative - Neurologic Neurologic: CNII-XII intact, moves all extremities Results - Labs CBC & Chem 7: 03/08/16 07:01 03/08/16 07:01 Labs: Laboratory Last Values WBC 2.9 K/mm3 (4.5-11.0) L 03/08/16 07:01 RBC 2.74 M/mm3 (3.65-5.03) L 03/08/16 07:01 Hgb 7.5 gm/dl (11.8-15.2) L 03/08/16 07:01 Hct 23.7 % (35.5-45.6) L 03/08/16 07:01 MCV 87 fl (84-94) 03/08/16 07:01 MCH 28 pg (28-32) 03/08/16 07:01 MCHC 32 % (32-34) 03/08/16 07:01 RDW 17.3 % (13.2-15.2) H 03/08/16 07:01 Plt Count 108 K/mm3 (140-440) L 03/08/16 07:01 Lymph % (Auto) 9.2 % (13.4-35.0) L 03/08/16 07:01 [place] % (Auto) 15.4 % (0.0-7.3) H 03/08/16 07:01 Eos % (Auto) 9.3 % (0.0-4.3) H 03/08/16 07:01 Baso % (Auto) 0.7 % (0.0-1.8) 03/08/16 07:01 Lymph # 0.3 K/mm3 (1.2-5.4) L 03/08/16 07:01 [place] # 0.4 K/mm3 (0.0-0.8) 03/08/16 07:01 Eos # 0.3 K/mm3 (0.0-0.4) 03/08/16 07:01 Baso # 0.0 K/mm3 (0.0-0.1) 03/08/16 07:01 Add Manual Diff Complete 03/07/16 15:37 Total Counted 100 03/07/16 15:37 Seg Neutrophils % 65.4 % (40.0-70.0) 03/08/16 07:01 Seg Neuts % (Manual) 67.0 % (40.0-70.0) 03/07/16 15:37 Band Neutrophils % 0 % 03/07/16 15:37 Lymphocytes % (Manual) 8.0 % (13.4-35.0) L 03/07/16 15:37 Reactive Lymphs % (Man) 0 % 03/07/16 15:37 Monocytes % (Manual) 16.0 % (0.0-7.3) H 03/07/16 15:37 Eosinophils % (Manual) 7.0 % (0.0-4.3) H 03/07/16 15:37 Basophils % (Manual) 2.0 % (0.0-1.8) H 03/07/16 15:37 Metamyelocytes % 0 % 03/07/16 15:37 Myelocytes % 0 % 03/07/16 15:37 Promyelocytes % 0 % 03/07/16 15:37 Blast Cells % 0 % 03/07/16 15:37 Nucleated RBC % Not Reportable 03/07/16 15:37 Seg Neutrophils # 1.9 K/mm3 (1.8-7.7) 03/08/16 07:01 Seg Neutrophils # Man 2.0 K/mm3 (1.8-7.7) 03/07/16 15:37 Band Neutrophils # 0.0 K/mm3 03/07/16 15:37 Lymphocytes # (Manual) 0.2 K/mm3 (1.2-5.4) L 03/07/16 15:37 Abs React Lymphs (Man) 0.0 K/mm3 03/07/16 15:37 Monocytes # (Manual) 0.5 K/mm3 (0.0-0.8) 03/07/16 15:37 Eosinophils # (Manual) 0.2 K/mm3 (0.0-0.4) 03/07/16 15:37 Basophils # (Manual) 0.1 K/mm3 (0.0-0.1) 03/07/16 15:37 Metamyelocytes # 0.0 K/mm3 03/07/16 15:37 Myelocytes # 0.0 K/mm3 03/07/16 15:37 Promyelocytes # 0.0 K/mm3 03/07/16 15:37 Blast Cells # 0.0 K/mm3 03/07/16 15:37 WBC Morphology Not Reportable 03/07/16 15:37 Hypersegmented Neuts Not Reportable 03/07/16 15:37 Hyposegmented Neuts Not Reportable 03/07/16 15:37 Hypogranular Neuts Not Reportable 03/07/16 15:37 Smudge Cells Not Reportable 03/07/16 15:37 Toxic Granulation Not Reportable 03/07/16 15:37 Toxic Vacuolation Not Reportable 03/07/16 15:37 Dohle Bodies Not Reportable 03/07/16 15:37 Pelger-Huet Anomaly Not Reportable 03/07/16 15:37 Jimbo Rods Not Reportable 03/07/16 15:37 Platelet Estimate Consistent w auto 03/07/16 15:37 Clumped Platelets Not Reportable 03/07/16 15:37 Plt Clumps, EDTA Not Reportable 03/07/16 15:37 Large Platelets Not Reportable 03/07/16 15:37 Giant Platelets Not Reportable 03/07/16 15:37 Platelet Satelliting Not Reportable 03/07/16 15:37 Plt Morphology Comment Not Reportable 03/07/16 15:37 RBC Morphology Not Reportable 03/07/16 15:37 Dimorphic RBCs Not Reportable 03/07/16 15:37 Polychromasia Not Reportable 03/07/16 15:37 Hypochromasia 1+ 03/07/16 15:37 Poikilocytosis Not Reportable 03/07/16 15:37 Anisocytosis 1+ 03/07/16 15:37 Microcytosis Not Reportable 03/07/16 15:37 Macrocytosis Not Reportable 03/07/16 15:37 Spherocytes Not Reportable 03/07/16 15:37 Pappenheimer Bodies Not Reportable 03/07/16 15:37 Sickle Cells Not Reportable 03/07/16 15:37 Target Cells Not Reportable 03/07/16 15:37 Tear Drop Cells Not Reportable 03/07/16 15:37 Ovalocytes Not Reportable 03/07/16 15:37 Helmet Cells Not Reportable 03/07/16 15:37 [place] Bodies Not Reportable 03/07/16 15:37 [place] Rings Not Reportable 03/07/16 15:37 Erich Cells Not Reportable 03/07/16 15:37 Bite Cells Not Reportable 03/07/16 15:37 Crenated Cell Not Reportable 03/07/16 15:37 Elliptocytes Not Reportable 03/07/16 15:37 Acanthocytes (Spur) Not Reportable 03/07/16 15:37 Rouleaux Not Reportable 03/07/16 15:37 Hemoglobin C Crystals Not Reportable 03/07/16 15:37 Schistocytes Not Reportable 03/07/16 15:37 Malaria parasites Not Reportable 03/07/16 15:37 Venkat Bodies Not Reportable 03/07/16 15:37 Hem Pathologist Commnt No 03/07/16 15:37 PT 13.6 Sec. (12.2-14.9) 03/05/16 03:37 INR 1.05 (0.87-1.13) 03/05/16 03:37 APTT 40.6 Sec. (24.2-36.6) H 03/05/16 03:37 Sodium 139 mmol/L (137-145) 03/08/16 07:01 Potassium 4.7 mmol/L (3.6-5.0) 03/08/16 07:01 Chloride 97.1 mmol/L (98-107) L 03/08/16 07:01 Carbon Dioxide 26 mmol/L (22-30) 03/08/16 07:01 Anion Gap 21 mmol/L 03/08/16 07:01 BUN 41 mg/dL (9-20) H 03/08/16 07:01 Creatinine 12.6 mg/dL (0.8-1.5) H 03/08/16 07:01 Estimated GFR 5 ml/min 03/08/16 07:01 BUN/Creatinine Ratio 3.25 % 03/08/16 07:01 Glucose 72 mg/dL (75-100) L 03/08/16 07:01 POC Glucose 44 (70-105) L 03/05/16 06:31 Calcium 8.6 mg/dL (8.4-10.2) 03/08/16 07:01 Plasma/Serum Alcohol < 0.01 gm% (0-0.07) 03/05/16 03:37 Blood Type O POSITIVE 03/06/16 08:57 Antibody Screen Negative 03/06/16 08:57 Crossmatch See Detail 03/06/16 08:57
--- NOTE | 2016-03-08 14:09 | Progress Note ---
Assessment and Plan 55-year-old male with rupture of left AV access pseudoaneurysm requiring suturing in the emergency room with subsequent necrosis of the pseudoaneurysm and thrombosis of most of the AV access. There is a weak pulse noted in the proximal portion of the AV access. Dressing change to pressure dressing. Told nurses not to change this dressing. NPO after MN. Consented for explantation tomorrow. Subjective Date of service: 03/08/16 Principal diagnosis: AVF/AVG malfunction Interval history: No trikethrough bleeding with Telfa, 4 x 4's, and [place] dressing on left AV access. Left radial pulse palpable. Patient describes no distress site after dressing placed. No pain at the site. Objective - Constitutional Vitals: Vital Signs - 12hr 03/08/16 03/08/16 03/08/16 05:42 08:00 10:00 Temperature 97.6 F 98.2 F Pulse Rate 88 Pulse Rate [ 88 83 Right Radial] Respiratory 20 18 Rate Blood Pressure 148/68 147/96 [Right Arm] O2 Sat by Pulse 94 92 Oximetry 03/08/16 11:00 Temperature 98.5 F Pulse Rate Pulse Rate [ 87 Right Radial] Respiratory 20 Rate Blood Pressure 165/104 [Right Arm] O2 Sat by Pulse 89 Oximetry General appearance: Present: no acute distress - EENT Eyes: EOM intact ENT: hearing intact - Respiratory Respiratory effort: normal Extremities: pulses intact (lue radial), normal temperature (lue), normal color (lue) - Psychiatric Psychiatric: appropriate mood/affect, cooperative - Labs CBC & Chem 7: 03/08/16 07:01 03/08/16 07:01 Labs: Abnormal lab results 03/07/16 03/07/16 03/08/16 Range/Units 15:37 15:37 07:01 WBC 3.0 L 2.9 L (4.5-11.0) K/mm3 RBC 3.01 L 2.74 L (3.65-5.03) M/mm3 Hgb 8.3 L 7.5 L (11.8-15.2) gm/dl Hct 25.9 L D 23.7 L (35.5-45.6) % RDW 17.5 H 17.3 H (13.2-15.2) % Plt Count 119 L 108 L (140-440) K/mm3 Lymph % (Auto) 9.2 L (13.4-35.0) % [place] % (Auto) 15.4 H (0.0-7.3) % Eos % (Auto) 9.3 H (0.0-4.3) % Lymph # 0.3 L (1.2-5.4) K/mm3 Lymphocytes % (Manual) 8.0 L (13.4-35.0) % Monocytes % (Manual) 16.0 H (0.0-7.3) % Eosinophils % (Manual) 7.0 H (0.0-4.3) % Basophils % (Manual) 2.0 H (0.0-1.8) % Lymphocytes # (Manual) 0.2 L (1.2-5.4) K/mm3 Sodium 136 L (137-145) mmol/L Chloride 94.0 L (98-107) mmol/L BUN 33 H (9-20) mg/dL Creatinine 10.0 H (0.8-1.5) mg/dL Glucose (75-100) mg/dL 03/08/16 Range/Units 07:01 WBC (4.5-11.0) K/mm3 RBC (3.65-5.03) M/mm3 Hgb (11.8-15.2) gm/dl Hct (35.5-45.6) % RDW (13.2-15.2) % Plt Count (140-440) K/mm3 Lymph % (Auto) (13.4-35.0) % [place] % (Auto) (0.0-7.3) % Eos % (Auto) (0.0-4.3) % Lymph # (1.2-5.4) K/mm3 Lymphocytes % (Manual) (13.4-35.0) % Monocytes % (Manual) (0.0-7.3) % Eosinophils % (Manual) (0.0-4.3) % Basophils % (Manual) (0.0-1.8) % Lymphocytes # (Manual) (1.2-5.4) K/mm3 Sodium (137-145) mmol/L Chloride 97.1 L (98-107) mmol/L BUN 41 H (9-20) mg/dL Creatinine 12.6 H (0.8-1.5) mg/dL Glucose 72 L (75-100) mg/dL
[2016-03-08] MEDS ORDERED: VANCOMYCIN/NS 500 MG/100 ML 100 ML IV SCH (18:00)
[2016-03-08] MEDS ORDERED: VANCOMYCIN/NS 1 GM/250 ML 250 ML IV SCH (20:00)
[2016-03-08] MEDS: MAXIPIME/NS 1 GM/100 ML 100 ML IV SCH (21:39)
--- NOTE | 2016-03-09 08:35 | Anesthesia Consultation ---
Anesthesia Consult and Med Hx Date of service: 03/09/16 - Airway Anesthetic Teeth Evaluation: Good ROM Head & Neck: Adequate Mental/Hyoid Distance: Adequate Mallampati Class: Class III Intubation Access Assessment: Possibly Difficult - Pulmonary Exam CTA: Yes - Cardiac Exam Cardiac Exam: RRR - Pre-Operative Health Status ASA Pre-Surgery Classification: ASA4 Proposed Anesthetic Plan: General - Pre-Anesthesia Comment Pre-Anesthesia Comments: Bleeding at AVF site s/p ruptured pseudoaneurysm resulting in acute anemia requiring 2 units PRBC. Patient scheduled for exploration of AVF site. Thrombocytopenia - Cardiovascular System Hx Hypertension: Yes - Endocrine Hx Renal Disease: Yes (end-stage renal disease) Hx Liver Disease: Yes - Hematic Hx Anemia: Yes
--- NOTE | 2016-03-09 08:40 | Progress Note ---
Assessment and Plan - Patient Problems (1) End stage renal disease Current Visit: Yes Status: Acute Plan to address problem: Continue hemodialysis as planned. Hemodialysis orders are written. (2) Hyperkalemia Current Visit: Yes Status: Acute Plan to address problem: Improved. (3) Renal dialysis device, implant, or graft complication Current Visit: Yes Status: Acute Plan to address problem: S/p new AVF placement. (4) Anemia Current Visit: Yes Status: Acute Plan to address problem: S/p PRBC. Epogen prn. (5) Hypertension Current Visit: Yes Status: Acute (6) Non-compliance with renal dialysis Current Visit: Yes Status: Acute Plan to address problem: Patient needs outpatient hemodialysis chair. Compliance encouraged. Subjective Date of service: 03/09/16 Principal diagnosis: AVF/AVG malfunction Interval history: Patient denies any new complaint. Objective - Vital Signs Vital signs: Vital Signs - 12hr 03/09/16 03/09/16 03/09/16 01:01 04:27 07:51 Temperature 98.4 F 98.4 F Pulse Rate [ 91 H 88 Right Radial] Respiratory 18 18 Rate Blood Pressure 136/84 165/94 [Right Arm] O2 Sat by Pulse 95 96 92 Oximetry - General Appearance General appearance: well-developed, well-nourished, other (no distress) EENT: PERRL, mucous membranes moist, hearing intact Neck: JVD, supple Respiratory: Present: Clear to Ascultation Cardiology: regular, S1S2, no murmurs Gastrointestinal: normoactive bowel sounds, no tenderness, no distended, no guarding Integumentary: no rash, warm and dry Neurologic: no focal deficit, no asterixis, alert and oriented x3, CN 3-12 intact Musculoskeletal: other (no edema, left FA AVF) Psychiatric: mood/affect appropriate, cooperative - Lab 03/09/16 08:19 03/09/16 08:19 Most recent lab results Calcium 8.6 mg/dL (8.4-10.2) 03/08/16 07:01
[2016-03-09] MEDS ORDERED: NACL 0.9% 1000 ML 100 ML IV PRN ×2 (08:41→18:26)
[2016-03-09 09:03] LABS: Eosinophils % (Auto) 9.7 % (0.0-4.3); Hematocrit 23.9 % (35.5-45.6); Hemoglobin 7.7 gm/dl (11.8-15.2); Mean Corpuscular HGB Conc 32 % (32-34); Mean Corpuscular Hemoglobin 28 pg (28-32); Mean Corpuscular Volume 87 fl (84-94); Platelet Count 116 K/mm3 (140-440); Red Blood Count 2.76 M/mm3 (3.65-5.03); Red Cell Distribution Width 17.6 % (13.2-15.2); White Blood Count 3.2 K/mm3 (4.5-11.0)
[2016-03-09 09:17] LABS: BUN/Creatinine Ratio 3.47; Calcium 8.4 mg/dL (8.4-10.2); Chloride 94.4 mmol/L (98-107)
[2016-03-09] MEDS: APRESOLINE IV PRN (10:00)
[2016-03-09] MEDS ORDERED: NACL 0.9% 1000 ML 1,000 ML IV SCH (11:00)
[2016-03-09] MEDS ORDERED: XYLOCAINE 1%/ EPI 1:100,000 INFILTRATI ONE (11:13)
[2016-03-09] MEDS ORDERED: RIFADIN ONE (11:13)
[2016-03-09] MEDS ORDERED: THROMBIN (BOVINE) TP ONE (11:13)
[2016-03-09] MEDS ORDERED: SUBLIMAZE ONE (11:31)
[2016-03-09] MEDS ORDERED: DIPRIVAN 10 MG/ML IV ONE (11:32)
[2016-03-09] MEDS ORDERED: NACL 0.9% 500 ML 500 ML IV ONE (12:00)
[2016-03-09] MEDS ORDERED: XYLOCAINE MPF 2% ONE (13:09)
[2016-03-09] MEDS ORDERED: NACL 0.9% 100 ML ONE ×2 (13:09→15:05)
[2016-03-09] MEDS ORDERED: NEO SYNEPHRINE ONE ×2 (13:09→15:05)
[2016-03-09] MEDS ORDERED: DILAUDID ONE (13:09)
[2016-03-09] MEDS ORDERED: HEPARIN 10,000 UNITS/10 ML IV ONE (13:16)
[2016-03-09] MEDS ORDERED: NACL 0.9% 500 ML IRRIGATION ONE (13:17)
[2016-03-09] MEDS ORDERED: MARCAINE-EPI 0.5%-1:200,000 IJ ONE (13:17)
[2016-03-09] MEDS ORDERED: NACL 0.9% IR ONE (13:18)
--- NOTE | 2016-03-09 13:18 | Anesthesia Day of Surgery ---
Anesthesia Day of Surgery - Day of Surgery Patient Examined: Yes Patient H&P Reviewed: Yes Patient is NPO: Yes
[2016-03-09] MEDS ORDERED: DILAUDID IV PRN (13:19)
[2016-03-09] MEDS ORDERED: ZOFRAN IV PRN (13:19)
[2016-03-09] MEDS ORDERED: ZOFRAN ONE (13:42)
[2016-03-09] MEDS ORDERED: HEPARIN 10,000 UNITS/10 ML ONE (15:05)
[2016-03-09] MEDS ORDERED: NORCO 5/325 PO PRN (15:57)
[2016-03-09] MEDS ORDERED: PROVENTIL IH ONE (16:05)
--- NOTE | 2016-03-09 16:45 | Post Anesthesia Evaluation ---
- Post Anesthesia Evaluation Patient Participated: Yes Airway Patent: Yes Stable Respiratory Function: Yes (bronchodilator rx in PACU) Temp > 96.8F: Yes Pain Manageable: Yes Adequeate Hydration: Yes Anesthesia Complications: No Block Receding Appropriately: Not Applicable
--- NOTE | 2016-03-09 16:59 | Operative Report ---
Operative Report Operative Report: Operative note: Date: 03/09/2016 Preoperative diagnosis: Left failed dialysis access with ulceration Postoperative diagnosis: Same. Operation: Excision of left arm AV graft was ulcer, creation of left Taran AV fistula Surgeon: Susan Driscoll. Asst.: Michael Chandra Anesthesia: Gen. EBL: 75 mL Findings: Left arm ulcerated and thrombosed AV graft Indications: 55-year-old male with multiple failed permacath befor, previously refusing permanent access, developed AV graft bleeding that was repaired last admission. This time patient arrived with left arm AV graft ulcer. His AV graft was thrombosed. Patient needed excision of 80 graft ulcer and placement of another permanent access. Patient was explained risks and benefits of procedure and he chose to proceed, signed informed consent. Operative details: Patient was brought to the operating room and placed in supine position with left arm on extension table. Gen. anesthesia was administered. Timeout performed and all team members in the agreement. Left arm was prepped and draped in sterile fashion. Initially we created incision at the distal part to the ulcer dissected around the graft. Incision was extended over the ulcerated part into the distal part of the graft. The graft was excised and sent for culture. Distal and proximal part of graft and its were closed with 3-0 Prolene stitch. Wound was left open and packed. The ultrasound was performed identifying cephalic vein. It was compressible is good size throughout its length from the wrist level. Incision was made between the distal part of cephalic vein and radial artery. Initially we dissected around cephalic vein mobilizing, then dissected the radial artery. Cephalic vein was transected distally and was likely this sterile silk. It was irrigated with heparinized saline with olive-tipped syringe. Distal and proximal control for radial artery was again was 2 and regular vascular clamps. Arteriotomy was created with 11 blade and extended with Kaufman scissors. Anastomosis was created with running 6-0 Prolene. Artery was opened, however was no thrill or pulsation felt and vein. Decision was made to regain control proximal and distal of radial artery and redo anastomosis. We transected cephalic vein with more proximal in a blunt fashion in the created anastomosis heparinized patient with 3000 units of heparin. Anastomosis was created was running 6-0 Prolene. When the artery was clamped was identified with arterial pulse and thrill in the cephalic vein. Hemostasis was achieved with electrocautery and wound was closed in 2 layers with 3-0 Vicryl and 4-0 Monocryl. Dermabond glue applied. Needle and sponge counts were correct 2. Patient tolerated procedure well and was transferred to PACU in stable condition.
[2016-03-09] MEDS ORDERED: DECADRON ONE (18:50)
--- NOTE | 2016-03-09 19:16 | Progress Note ---
Assessment and Plan Assessment and plan: --Bleeding from any fistula site/ ruptured pseudoaneurysm, status post repair Received hemodialysis --End-stage renal disease on hemodialysis Hemodialysis per schedule nephrology following Outpatient HD scheduled for case management --Chronic anemia secondary to end-stage liver disease Status post 2 units of PRBC transfusion Closely monitor H&H and transfuse additional if needed --DVT prophylaxis with SCDs --Medical noncompliance with hemodialysis/medications Counseling done patient strongly advised to adhere to the treatment plan Verbalized understanding Case management to assist with outpatient HD setup an DC planning when medically stable Plan of care discussed with the patient as well as the nurse History Interval history: Patient underwent excision of left arm AV graft created a new AV fistula per vascular Received hemodialysis Patient feels better denies any chest pain or shortness of breath Alert awake oriented 3 vital signs are stable Hospitalist Physical - Constitutional Vitals: Temp Pulse Resp BP Pulse Ox 98.9 F 105 H 20 97/51 96 03/09/16 18:05 03/09/16 19:05 03/09/16 18:05 03/09/16 19:05 03/09/16 17:35 General appearance: Present: no acute distress, well-nourished - EENT Eyes: Present: PERRL, EOM intact - Neck Neck: Present: supple, normal ROM - Respiratory Respiratory effort: normal Respiratory: bilateral: diminished, negative: rales, rhonchi, wheezing - Cardiovascular Rhythm: regular Heart Sounds: Present: S1 & S2 - Extremities Extremities: no ischemia, pulses intact, pulses symmetrical Peripheral Pulses: within normal limits - Abdominal General gastrointestinal: soft, non-tender, non-distended, normal bowel sounds - Integumentary Integumentary: Present: clear, warm - Psychiatric Psychiatric: appropriate mood/affect, cooperative - Neurologic Neurologic: CNII-XII intact, moves all extremities Results - Labs CBC & Chem 7: 03/09/16 08:19 03/09/16 08:19 Labs: Laboratory Last Values WBC 3.2 K/mm3 (4.5-11.0) L 03/09/16 08:19 RBC 2.76 M/mm3 (3.65-5.03) L 03/09/16 08:19 Hgb 7.7 gm/dl (11.8-15.2) L 03/09/16 08:19 Hct 23.9 % (35.5-45.6) L 03/09/16 08:19 MCV 87 fl (84-94) 03/09/16 08:19 MCH 28 pg (28-32) 03/09/16 08:19 MCHC 32 % (32-34) 03/09/16 08:19 RDW 17.6 % (13.2-15.2) H 03/09/16 08:19 Plt Count 116 K/mm3 (140-440) L 03/09/16 08:19 Lymph % (Auto) 11.6 % (13.4-35.0) L 03/09/16 08:19 [place] % (Auto) 13.7 % (0.0-7.3) H 03/09/16 08:19 Eos % (Auto) 9.7 % (0.0-4.3) H 03/09/16 08:19 Baso % (Auto) 1.0 % (0.0-1.8) 03/09/16 08:19 Lymph # 0.4 K/mm3 (1.2-5.4) L 03/09/16 08:19 [place] # 0.4 K/mm3 (0.0-0.8) 03/09/16 08:19 Eos # 0.3 K/mm3 (0.0-0.4) 03/09/16 08:19 Baso # 0.0 K/mm3 (0.0-0.1) 03/09/16 08:19 Add Manual Diff Complete 03/07/16 15:37 Total Counted 100 03/07/16 15:37 Seg Neutrophils % 64.0 % (40.0-70.0) 03/09/16 08:19 Seg Neuts % (Manual) 67.0 % (40.0-70.0) 03/07/16 15:37 Band Neutrophils % 0 % 03/07/16 15:37 Lymphocytes % (Manual) 8.0 % (13.4-35.0) L 03/07/16 15:37 Reactive Lymphs % (Man) 0 % 03/07/16 15:37 Monocytes % (Manual) 16.0 % (0.0-7.3) H 03/07/16 15:37 Eosinophils % (Manual) 7.0 % (0.0-4.3) H 03/07/16 15:37 Basophils % (Manual) 2.0 % (0.0-1.8) H 03/07/16 15:37 Metamyelocytes % 0 % 03/07/16 15:37 Myelocytes % 0 % 03/07/16 15:37 Promyelocytes % 0 % 03/07/16 15:37 Blast Cells % 0 % 03/07/16 15:37 Nucleated RBC % Not Reportable 03/07/16 15:37 Seg Neutrophils # 2.1 K/mm3 (1.8-7.7) 03/09/16 08:19 Seg Neutrophils # Man 2.0 K/mm3 (1.8-7.7) 03/07/16 15:37 Band Neutrophils # 0.0 K/mm3 03/07/16 15:37 Lymphocytes # (Manual) 0.2 K/mm3 (1.2-5.4) L 03/07/16 15:37 Abs React Lymphs (Man) 0.0 K/mm3 03/07/16 15:37 Monocytes # (Manual) 0.5 K/mm3 (0.0-0.8) 03/07/16 15:37 Eosinophils # (Manual) 0.2 K/mm3 (0.0-0.4) 03/07/16 15:37 Basophils # (Manual) 0.1 K/mm3 (0.0-0.1) 03/07/16 15:37 Metamyelocytes # 0.0 K/mm3 03/07/16 15:37 Myelocytes # 0.0 K/mm3 03/07/16 15:37 Promyelocytes # 0.0 K/mm3 03/07/16 15:37 Blast Cells # 0.0 K/mm3 03/07/16 15:37 WBC Morphology Not Reportable 03/07/16 15:37 Hypersegmented Neuts Not Reportable 03/07/16 15:37 Hyposegmented Neuts Not Reportable 03/07/16 15:37 Hypogranular Neuts Not Reportable 03/07/16 15:37 Smudge Cells Not Reportable 03/07/16 15:37 Toxic Granulation Not Reportable 03/07/16 15:37 Toxic Vacuolation Not Reportable 03/07/16 15:37 Dohle Bodies Not Reportable 03/07/16 15:37 Pelger-Huet Anomaly Not Reportable 03/07/16 15:37 Jimbo Rods Not Reportable 03/07/16 15:37 Platelet Estimate Consistent w auto 03/07/16 15:37 Clumped Platelets Not Reportable 03/07/16 15:37 Plt Clumps, EDTA Not Reportable 03/07/16 15:37 Large Platelets Not Reportable 03/07/16 15:37 Giant Platelets Not Reportable 03/07/16 15:37 Platelet Satelliting Not Reportable 03/07/16 15:37 Plt Morphology Comment Not Reportable 03/07/16 15:37 RBC Morphology Not Reportable 03/07/16 15:37 Dimorphic RBCs Not Reportable 03/07/16 15:37 Polychromasia Not Reportable 03/07/16 15:37 Hypochromasia 1+ 03/07/16 15:37 Poikilocytosis Not Reportable 03/07/16 15:37 Anisocytosis 1+ 03/07/16 15:37 Microcytosis Not Reportable 03/07/16 15:37 Macrocytosis Not Reportable 03/07/16 15:37 Spherocytes Not Reportable 03/07/16 15:37 Pappenheimer Bodies Not Reportable 03/07/16 15:37 Sickle Cells Not Reportable 03/07/16 15:37 Target Cells Not Reportable 03/07/16 15:37 Tear Drop Cells Not Reportable 03/07/16 15:37 Ovalocytes Not Reportable 03/07/16 15:37 Helmet Cells Not Reportable 03/07/16 15:37 [place]iz[place] Bodies Not Reportable 03/07/16 15:37 [place] Rings Not Reportable 03/07/16 15:37 Erich Cells Not Reportable 03/07/16 15:37 Bite Cells Not Reportable 03/07/16 15:37 Crenated Cell Not Reportable 03/07/16 15:37 Elliptocytes Not Reportable 03/07/16 15:37 Acanthocytes (Spur) Not Reportable 03/07/16 15:37 Rouleaux Not Reportable 03/07/16 15:37 Hemoglobin C Crystals Not Reportable 03/07/16 15:37 Schistocytes Not Reportable 03/07/16 15:37 Malaria parasites Not Reportable 03/07/16 15:37 Venkat Bodies Not Reportable 03/07/16 15:37 Hem Pathologist Commnt No 03/07/16 15:37 PT 13.6 Sec. (12.2-14.9) 03/05/16 03:37 INR 1.05 (0.87-1.13) 03/05/16 03:37 APTT 40.6 Sec. (24.2-36.6) H 03/05/16 03:37 Sodium 136 mmol/L (137-145) L 03/09/16 08:19 Potassium 5.0 mmol/L (3.6-5.0) 03/09/16 08:19 Chloride 94.4 mmol/L (98-107) L 03/09/16 08:19 Carbon Dioxide 25 mmol/L (22-30) 03/09/16 08:19 Anion Gap 22 mmol/L 03/09/16 08:19 BUN 50 mg/dL (9-20) H 03/09/16 08:19 Creatinine 14.4 mg/dL (0.8-1.5) H 03/09/16 08:19 Estimated GFR 4 ml/min 03/09/16 08:19 BUN/Creatinine Ratio 3.47 % 03/09/16 08:19 Glucose 70 mg/dL (75-100) L 03/09/16 08:19 POC Glucose 103 (70-105) 03/09/16 16:11 Calcium 8.4 mg/dL (8.4-10.2) 03/09/16 08:19 Plasma/Serum Alcohol < 0.01 gm% (0-0.07) 03/05/16 03:37 Hepatitis A IgM Ab Nonreactive (NonReactive) 03/09/16 08:19 Hep Bs Antigen Non-reactive (Negative) 03/09/16 08:19 Hep B Core IgM Ab Non-reactive (NonReactive) 03/09/16 08:19 Hepatitis C Antibody Non-reactive (NonReactive) 03/09/16 08:19 Blood Type O POSITIVE 03/09/16 09:50 Antibody Screen Negative 03/09/16 09:50 Crossmatch See Detail 03/09/16 09:50
[2016-03-09] MEDS: HEPARIN IV PRN (20:02)
[2016-03-09] MEDS: MORPHINE IV PRN (21:45)
[2016-03-09] MEDS: MAXIPIME/NS 1 GM/100 ML 100 ML IV SCH (21:45)
[2016-03-09] MEDS: ZOFRAN IV PRN (21:46)
[2016-03-10] MEDS: MORPHINE IV PRN ×3 (01:30→14:28)
[2016-03-10] MEDS: ZOFRAN IV PRN (07:03)
--- NOTE | 2016-03-10 08:45 | Progress Note ---
Assessment and Plan - Patient Problems (1) End stage renal disease Current Visit: Yes Status: Acute Plan to address problem: Patient was last dialyzed yesterday. Continue hemodialysis three times a week. Await outpatient hemodialysis setup. (2) Hyperkalemia Current Visit: Yes Status: Acute Plan to address problem: Improved. 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 (4) Anemia Current Visit: Yes Status: Acute Plan to address problem: S/p PRBC. Epogen. (5) Hypertension Current Visit: Yes Status: Acute (6) Non-compliance with renal dialysis Current Visit: Yes Status: Acute Plan to address problem: Compliance encouraged. Subjective Date of service: 03/10/16 Principal diagnosis: AVF/AVG malfunction Interval history: Patient is feeling better. Objective - Vital Signs Vital signs: Vital Signs - 12hr 03/09/16 03/09/16 03/09/16 21:00 21:08 21:45 Temperature 98.3 F Pulse Rate Pulse Rate [ 92 H Apical] Pulse Rate [ 93 H Right Radial] Respiratory 20 18 20 Rate Respiratory Rate [Left Arm] Blood Pressure Blood Pressure 101/64 [Right Arm] O2 Sat by Pulse 98 97 Oximetry 03/09/16 03/09/16 03/09/16 21:54 22:15 23:29 Temperature Pulse Rate 90 Pulse Rate [ Apical] Pulse Rate [ Right Radial] Respiratory 20 Rate Respiratory 20 Rate [Left Arm] Blood Pressure Blood Pressure [Right Arm] O2 Sat by Pulse Oximetry 03/10/16 03/10/16 03/10/16 00:15 00:35 00:50 Temperature 98.5 F 98.5 F 98.7 F Pulse Rate 90 92 H Pulse Rate [ Apical] Pulse Rate [ 91 H Right Radial] Respiratory 18 18 20 Rate Respiratory Rate [Left Arm] Blood Pressure 102/60 126/70 Blood Pressure 99/60 [Right Arm] O2 Sat by Pulse 98 98 98 Oximetry 03/10/16 03/10/16 03/10/16 01:20 01:30 01:50 Temperature 98.1 F 98.1 F Pulse Rate 85 82 Pulse Rate [ Apical] Pulse Rate [ Right Radial] Respiratory 18 18 20 Rate Respiratory Rate [Left Arm] Blood Pressure 112/76 116/80 Blood Pressure [Right Arm] O2 Sat by Pulse 97 99 Oximetry 03/10/16 03/10/16 03/10/16 02:00 02:20 02:50 Temperature 98.2 F 97.8 F Pulse Rate 80 78 Pulse Rate [ Apical] Pulse Rate [ Right Radial] Respiratory 20 20 20 Rate Respiratory Rate [Left Arm] Blood Pressure 110/62 134/88 Blood Pressure [Right Arm] O2 Sat by Pulse 97 99 Oximetry 03/10/16 03/10/16 03/10/16 03:20 03:43 07:03 Temperature 98.1 F 98.1 F Pulse Rate 78 80 Pulse Rate [ Apical] Pulse Rate [ Right Radial] Respiratory 18 20 20 Rate Respiratory Rate [Left Arm] Blood Pressure 124/72 128/78 Blood Pressure [Right Arm] O2 Sat by Pulse 99 98 Oximetry 03/10/16 03/10/16 07:33 08:08 Temperature 97.9 F Pulse Rate Pulse Rate [ Apical] Pulse Rate [ 81 Right Radial] Respiratory 20 20 Rate Respiratory Rate [Left Arm] Blood Pressure Blood Pressure 138/80 [Right Arm] O2 Sat by Pulse 95 Oximetry - General Appearance General appearance: well-developed, other (no distress, left groin hemodialysis catheter) EENT: PERRL, mucous membranes moist, hearing intact, vision intact Neck: no carotid bruit, supple Respiratory: Present: Clear to Ascultation Cardiology: regular, S1S2, no murmurs Gastrointestinal: normoactive bowel sounds, no tenderness, no distended, no guarding Integumentary: no rash, warm and dry Neurologic: no focal deficit, no asterixis, alert and oriented x3, CN 3-12 intact Musculoskeletal: other (no edema, left FA AVF) Psychiatric: mood/affect appropriate, cooperative - Lab 03/09/16 08:19 03/09/16 08:19 Most recent lab results Calcium 8.4 mg/dL (8.4-10.2) 03/09/16 08:19
--- NOTE | 2016-03-10 16:47 | Progress Note ---
Assessment and Plan Pt eval'd early this am. ET to see for upper arm wound. Audible doppler signal of fistula. AVF will need several months to mature. Encouraged hand exercises. He c/o mild numbness (no pain), improved since last night. Subjective Date of service: 03/10/16 Principal diagnosis: AVF/AVG malfunction Interval history: Pt awake and alert. C/o mild to mod. incisional pain. Objective - Constitutional Vitals: Vital Signs - 12hr 03/10/16 03/10/16 03/10/16 07:03 07:33 08:08 Temperature 97.9 F Pulse Rate Pulse Rate [ 81 Right Radial] Respiratory 20 20 20 Rate Blood Pressure 138/80 [Right Arm] O2 Sat by Pulse 95 Oximetry 03/10/16 03/10/16 03/10/16 09:28 10:00 11:01 Temperature 97.5 F L Pulse Rate 76 Pulse Rate [ 76 Right Radial] Respiratory 20 Rate Blood Pressure 158/93 [Right Arm] O2 Sat by Pulse 95 98 Oximetry 03/10/16 15:15 Temperature 97.6 F Pulse Rate Pulse Rate [ 79 Right Radial] Respiratory 20 Rate Blood Pressure 139/85 [Right Arm] O2 Sat by Pulse 96 Oximetry General appearance: Present: no acute distress - EENT Eyes: EOM intact ENT: hearing intact - Neck Neck: supple - Respiratory Respiratory effort: normal Extremities: no ischemia, abnormal (LUE - upper ext bandages clean and intact, non-constrictive. Wrist incision intact without drainage. small hematoma, no erythema or drainage. difficult to feel thrill, but good sounding doppler from wrist to elbow. ) - Neurologic Neurologic: other (mild numbness to left hand, improved over last 24hrs.) - Psychiatric Psychiatric: appropriate mood/affect, intact judgment & insight, cooperative - Labs CBC & Chem 7: 03/09/16 08:19 03/09/16 08:19 Labs: Abnormal lab results 03/09/16 Range/Units 09:50 Crossmatch See Detail
--- NOTE | 2016-03-10 19:34 | Progress Note ---
Assessment and Plan Assessment and plan: --Bleeding from any fistula site/ ruptured pseudoaneurysm, status post repair Hemodialysis per schedule, vascular following --End-stage renal disease on hemodialysis Hemodialysis per schedule nephrology following Outpatient HD scheduled for case management --Chronic anemia secondary to end-stage liver disease Status post 2 units of PRBC transfusion Closely monitor H&H and transfuse additional if needed --DVT prophylaxis with SCDs --Medical noncompliance with hemodialysis/medications Counseling done patient strongly advised to adhere to the treatment plan Verbalized understanding Case management to assist with outpatient HD setup an DC planning when medically stable Plan of care discussed with the patient as well as the nurse History Interval history: Patient seen and evaluated medical records reviewed Is and feels better no new complaints Mild oozing from the AV fistula, controlled with pressure bandage Alert awake oriented 3 not in acute distress Vital signs reviewed stable Hospitalist Physical - Constitutional Vitals: Temp Pulse Resp BP Pulse Ox 97.6 F 79 20 139/85 96 03/10/16 15:15 03/10/16 15:15 03/10/16 15:15 03/10/16 15:15 03/10/16 15:15 General appearance: Present: no acute distress, well-nourished - EENT Eyes: Present: PERRL, EOM intact - Neck Neck: Present: supple, normal ROM - Respiratory Respiratory effort: normal Respiratory: bilateral: diminished, negative: rales, rhonchi, wheezing - Cardiovascular Rhythm: regular Heart Sounds: Present: S1 & S2 - Extremities Extremities: no ischemia, pulses intact, pulses symmetrical Peripheral Pulses: within normal limits - Abdominal General gastrointestinal: soft, non-tender, non-distended, normal bowel sounds - Integumentary Integumentary: Present: clear, warm - Psychiatric Psychiatric: appropriate mood/affect, cooperative - Neurologic Neurologic: CNII-XII intact, moves all extremities Results - Labs CBC & Chem 7: 03/09/16 08:19 03/09/16 08:19 Labs: Laboratory Last Values WBC 3.2 K/mm3 (4.5-11.0) L 03/09/16 08:19 RBC 2.76 M/mm3 (3.65-5.03) L 03/09/16 08:19 Hgb 7.7 gm/dl (11.8-15.2) L 03/09/16 08:19 Hct 23.9 % (35.5-45.6) L 03/09/16 08:19 MCV 87 fl (84-94) 03/09/16 08:19 MCH 28 pg (28-32) 03/09/16 08:19 MCHC 32 % (32-34) 03/09/16 08:19 RDW 17.6 % (13.2-15.2) H 03/09/16 08:19 Plt Count 116 K/mm3 (140-440) L 03/09/16 08:19 Lymph % (Auto) 11.6 % (13.4-35.0) L 03/09/16 08:19 [place] % (Auto) 13.7 % (0.0-7.3) H 03/09/16 08:19 Eos % (Auto) 9.7 % (0.0-4.3) H 03/09/16 08:19 Baso % (Auto) 1.0 % (0.0-1.8) 03/09/16 08:19 Lymph # 0.4 K/mm3 (1.2-5.4) L 03/09/16 08:19 [place] # 0.4 K/mm3 (0.0-0.8) 03/09/16 08:19 Eos # 0.3 K/mm3 (0.0-0.4) 03/09/16 08:19 Baso # 0.0 K/mm3 (0.0-0.1) 03/09/16 08:19 Add Manual Diff Complete 03/07/16 15:37 Total Counted 100 03/07/16 15:37 Seg Neutrophils % 64.0 % (40.0-70.0) 03/09/16 08:19 Seg Neuts % (Manual) 67.0 % (40.0-70.0) 03/07/16 15:37 Band Neutrophils % 0 % 03/07/16 15:37 Lymphocytes % (Manual) 8.0 % (13.4-35.0) L 03/07/16 15:37 Reactive Lymphs % (Man) 0 % 03/07/16 15:37 Monocytes % (Manual) 16.0 % (0.0-7.3) H 03/07/16 15:37 Eosinophils % (Manual) 7.0 % (0.0-4.3) H 03/07/16 15:37 Basophils % (Manual) 2.0 % (0.0-1.8) H 03/07/16 15:37 Metamyelocytes % 0 % 03/07/16 15:37 Myelocytes % 0 % 03/07/16 15:37 Promyelocytes % 0 % 03/07/16 15:37 Blast Cells % 0 % 03/07/16 15:37 Nucleated RBC % Not Reportable 03/07/16 15:37 Seg Neutrophils # 2.1 K/mm3 (1.8-7.7) 03/09/16 08:19 Seg Neutrophils # Man 2.0 K/mm3 (1.8-7.7) 03/07/16 15:37 Band Neutrophils # 0.0 K/mm3 03/07/16 15:37 Lymphocytes # (Manual) 0.2 K/mm3 (1.2-5.4) L 03/07/16 15:37 Abs React Lymphs (Man) 0.0 K/mm3 03/07/16 15:37 Monocytes # (Manual) 0.5 K/mm3 (0.0-0.8) 03/07/16 15:37 Eosinophils # (Manual) 0.2 K/mm3 (0.0-0.4) 03/07/16 15:37 Basophils # (Manual) 0.1 K/mm3 (0.0-0.1) 03/07/16 15:37 Metamyelocytes # 0.0 K/mm3 03/07/16 15:37 Myelocytes # 0.0 K/mm3 03/07/16 15:37 Promyelocytes # 0.0 K/mm3 03/07/16 15:37 Blast Cells # 0.0 K/mm3 03/07/16 15:37 WBC Morphology Not Reportable 03/07/16 15:37 Hypersegmented Neuts Not Reportable 03/07/16 15:37 Hyposegmented Neuts Not Reportable 03/07/16 15:37 Hypogranular Neuts Not Reportable 03/07/16 15:37 Smudge Cells Not Reportable 03/07/16 15:37 Toxic Granulation Not Reportable 03/07/16 15:37 Toxic Vacuolation Not Reportable 03/07/16 15:37 Dohle Bodies Not Reportable 03/07/16 15:37 Pelger-Huet Anomaly Not Reportable 03/07/16 15:37 Jimbo Rods Not Reportable 03/07/16 15:37 Platelet Estimate Consistent w auto 03/07/16 15:37 Clumped Platelets Not Reportable 03/07/16 15:37 Plt Clumps, EDTA Not Reportable 03/07/16 15:37 Large Platelets Not Reportable 03/07/16 15:37 Giant Platelets Not Reportable 03/07/16 15:37 Platelet Satelliting Not Reportable 03/07/16 15:37 Plt Morphology Comment Not Reportable 03/07/16 15:37 RBC Morphology Not Reportable 03/07/16 15:37 Dimorphic RBCs Not Reportable 03/07/16 15:37 Polychromasia Not Reportable 03/07/16 15:37 Hypochromasia 1+ 03/07/16 15:37 Poikilocytosis Not Reportable 03/07/16 15:37 Anisocytosis 1+ 03/07/16 15:37 Microcytosis Not Reportable 03/07/16 15:37 Macrocytosis Not Reportable 03/07/16 15:37 Spherocytes Not Reportable 03/07/16 15:37 Pappenheimer Bodies Not Reportable 03/07/16 15:37 Sickle Cells Not Reportable 03/07/16 15:37 Target Cells Not Reportable 03/07/16 15:37 Tear Drop Cells Not Reportable 03/07/16 15:37 Ovalocytes Not Reportable 03/07/16 15:37 Helmet Cells Not Reportable 03/07/16 15:37 [place] Bodies Not Reportable 03/07/16 15:37 [place] Rings Not Reportable 03/07/16 15:37 Erich Cells Not Reportable 03/07/16 15:37 Bite Cells Not Reportable 03/07/16 15:37 Crenated Cell Not Reportable 03/07/16 15:37 Elliptocytes Not Reportable 03/07/16 15:37 Acanthocytes (Spur) Not Reportable 03/07/16 15:37 Rouleaux Not Reportable 03/07/16 15:37 Hemoglobin C Crystals Not Reportable 03/07/16 15:37 Schistocytes Not Reportable 03/07/16 15:37 Malaria parasites Not Reportable 03/07/16 15:37 Venkat Bodies Not Reportable 03/07/16 15:37 Hem Pathologist Commnt No 03/07/16 15:37 PT 13.6 Sec. (12.2-14.9) 03/05/16 03:37 INR 1.05 (0.87-1.13) 03/05/16 03:37 APTT 40.6 Sec. (24.2-36.6) H 03/05/16 03:37 Sodium 136 mmol/L (137-145) L 03/09/16 08:19 Potassium 5.0 mmol/L (3.6-5.0) 03/09/16 08:19 Chloride 94.4 mmol/L (98-107) L 03/09/16 08:19 Carbon Dioxide 25 mmol/L (22-30) 03/09/16 08:19 Anion Gap 22 mmol/L 03/09/16 08:19 BUN 50 mg/dL (9-20) H 03/09/16 08:19 Creatinine 14.4 mg/dL (0.8-1.5) H 03/09/16 08:19 Estimated GFR 4 ml/min 03/09/16 08:19 BUN/Creatinine Ratio 3.47 % 03/09/16 08:19 Glucose 70 mg/dL (75-100) L 03/09/16 08:19 POC Glucose 103 (70-105) 03/09/16 16:11 Calcium 8.4 mg/dL (8.4-10.2) 03/09/16 08:19 Plasma/Serum Alcohol < 0.01 gm% (0-0.07) 03/05/16 03:37 Hepatitis A IgM Ab Nonreactive (NonReactive) 03/09/16 08:19 Hep Bs Antigen Non-reactive (Negative) 03/09/16 08:19 Hep B Core IgM Ab Non-reactive (NonReactive) 03/09/16 08:19 Hepatitis C Antibody Non-reactive (NonReactive) 03/09/16 08:19 Blood Type O POSITIVE 03/09/16 09:50 Antibody Screen Negative 03/09/16 09:50 Crossmatch See Detail 03/09/16 09:50
--- NOTE | 2016-03-11 08:10 | Progress Note ---
Assessment and Plan - Patient Problems (1) End stage renal disease Current Visit: Yes Status: Acute Plan to address problem: Patient was seen and examined during hemodialysis. Continue hemodialysis three times a week. Await outpatient hemodialysis placement. (2) Hyperkalemia Current Visit: Yes Status: Acute Plan to address problem: Improved. 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 (4) Anemia Current Visit: Yes Status: Acute Qualifiers: Other causes of anemia: chronic disease, kidney Plan to address problem: S/p PRBC. Epogen. (5) Hypertension Current Visit: Yes Status: Acute (6) Non-compliance with renal dialysis Current Visit: Yes Status: Acute Plan to address problem: Compliance encouraged. Subjective Date of service: 03/11/16 Principal diagnosis: AVF/AVG malfunction Interval history: Patient is doing well. Objective - Vital Signs Vital signs: Vital Signs - 12hr 03/10/16 03/10/16 03/11/16 20:26 22:00 00:55 Temperature 98.2 F 97.6 F Pulse Rate [ 88 76 Right Radial] Respiratory 18 20 Rate Blood Pressure 141/80 128/68 [Right Arm] O2 Sat by Pulse 99 95 100 Oximetry 03/11/16 05:45 Temperature 97.6 F Pulse Rate [ 94 H Right Radial] Respiratory 18 Rate Blood Pressure 157/87 [Right Arm] O2 Sat by Pulse 96 Oximetry - General Appearance General appearance: well-developed, well-nourished, other (no distress) EENT: PERRL, mucous membranes moist, hearing intact, vision intact Neck: JVD, supple, other (dilated veins over the neck and back noted) Respiratory: Present: Rales Cardiology: regular, S1S2, no murmurs Gastrointestinal: normoactive bowel sounds, no tenderness, no distended, no guarding Integumentary: no rash, warm and dry Neurologic: no focal deficit, no asterixis, alert and oriented x3, CN 3-12 intact Musculoskeletal: other (left groin hemodialysis catheter, left FA AVF, no edema) Psychiatric: mood/affect appropriate, cooperative - Lab 03/09/16 08:19 03/09/16 08:19 Most recent lab results Calcium 8.4 mg/dL (8.4-10.2) 03/09/16 08:19
[2016-03-11] MEDS ORDERED: NACL 0.9% 1000 ML 100 ML IV PRN (10:21)
--- NOTE | 2016-03-11 13:56 | Progress Note ---
Assessment and Plan 55-year-old male with rupture of left AV access pseudoaneurysm requiring suturing in the emergency room with subsequent necrosis of the pseudoaneurysm and thrombosis of most of the AV access. Status post explantation with radiocephalic AVF creation. Taran AVF has dopplerable signal - no thrill or pulse. Small hematoma overlying Taran creation site likely resulting in extrinsic compression. Wound being changed by wound care. Reviewed notes. Will need home health to continue wound changes at home. Will need followup in 2 weeks with [facility]. Patient is historically noncompliant. Explained the risks of severe infection/bacteremia if he does not followup. He also needs monitoring for snf access and monitoring of his Taran AVF. Subjective Date of service: 03/11/16 Principal diagnosis: AVF/AVG malfunction Interval history: Left hand function normal. Some paresthesias since surgery which have improved. Dopplerable AVF at wrist. Objective - Constitutional Vitals: Vital Signs - 12hr 03/11/16 03/11/16 03/11/16 05:45 08:47 10:00 Temperature 97.6 F 97.8 F Pulse Rate 92 H Pulse Rate [ 94 H 92 H Right Radial] Respiratory 18 20 Rate Blood Pressure Blood Pressure 157/87 125/79 [Right Arm] O2 Sat by Pulse 96 92 Oximetry 03/11/16 03/11/16 03/11/16 10:20 11:36 11:40 Temperature 98.1 F 97.8 F Pulse Rate 80 Pulse Rate [ 84 Right Radial] Respiratory 20 20 Rate Blood Pressure 152/91 Blood Pressure 156/87 [Right Arm] O2 Sat by Pulse 94 96 Oximetry 03/11/16 03/11/16 03/11/16 12:00 12:15 12:30 Temperature Pulse Rate 90 94 H 99 H Pulse Rate [ Right Radial] Respiratory Rate Blood Pressure 118/70 140/73 121/69 Blood Pressure [Right Arm] O2 Sat by Pulse Oximetry 03/11/16 03/11/16 03/11/16 12:45 13:00 13:15 Temperature Pulse Rate 104 H 101 H 104 H Pulse Rate [ Right Radial] Respiratory Rate Blood Pressure 118/56 104/43 110/61 Blood Pressure [Right Arm] O2 Sat by Pulse Oximetry 03/11/16 13:30 Temperature Pulse Rate 105 H Pulse Rate [ Right Radial] Respiratory Rate Blood Pressure 96/56 Blood Pressure [Right Arm] O2 Sat by Pulse Oximetry General appearance: Present: no acute distress - EENT Eyes: EOM intact ENT: hearing intact - Respiratory Respiratory effort: normal Extremities: normal temperature, normal color Extremity abnormal: pulses diminished (dopplerable radio-cephalic AVF ; no pulse ; no thrill), other (wound just changed by wound care - will review wound care notes and pictures) - Psychiatric Psychiatric: appropriate mood/affect, cooperative - Labs CBC & Chem 7: 03/09/16 08:19 03/09/16 08:19
[2016-03-11] MEDS: HEPARIN IV PRN (15:42)
--- NOTE | 2016-03-11 17:10 | Progress Note ---
Assessment and Plan Assessment and plan: 1. 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 ESRD on HD On regular schedule per nephrology 3. Anemia of chronic renal disease + blood loss due to #1 Status post 3 units PRBC Epogen with HD 4. Noncompliance With HD and follow-up appointments Counseled regarding importance of adherence 5. DVT prophylaxis SCDs. No pharmacological agent given anemia requiring PRBC transfusion 6. Discharge planning issues Case management involved to arrange outpatient hemodialysis and home health for wound care History Interval history: doing well, no specific complaints Hospitalist Physical - Constitutional Vitals: Temp Pulse Resp BP Pulse Ox 97.9 F 98 H 20 120/64 96 03/11/16 15:15 03/11/16 15:15 03/11/16 15:15 03/11/16 15:15 03/11/16 11:36 General appearance: Present: no acute distress - EENT Eyes: Present: PERRL, EOM intact. Absent: scleral icterus, conjunctival injection - Neck Neck: Present: supple, normal ROM. Absent: masses or JVD - Respiratory Respiratory effort: normal Respiratory: bilateral: CTA, negative: rhonchi, wheezing - Cardiovascular Rhythm: regular Heart Sounds: Present: S1 & S2. Absent: systolic murmur - Extremities Extremities: no ischemia Extremity abnormal: other (new AVF with small hematoma) - Abdominal General gastrointestinal: soft, non-tender, non-distended, normal bowel sounds - Integumentary Integumentary: Present: warm, dry. Absent: jaundice, rash - Psychiatric Psychiatric: cooperative - Neurologic Neurologic: no focal deficits Results - Labs CBC & Chem 7: 03/09/16 08:19 03/09/16 08:19 Labs: Laboratory Last Values WBC 3.2 K/mm3 (4.5-11.0) L 03/09/16 08:19 RBC 2.76 M/mm3 (3.65-5.03) L 03/09/16 08:19 Hgb 7.7 gm/dl (11.8-15.2) L 03/09/16 08:19 Hct 23.9 % (35.5-45.6) L 03/09/16 08:19 MCV 87 fl (84-94) 03/09/16 08:19 MCH 28 pg (28-32) 03/09/16 08:19 MCHC 32 % (32-34) 03/09/16 08:19 RDW 17.6 % (13.2-15.2) H 03/09/16 08:19 Plt Count 116 K/mm3 (140-440) L 03/09/16 08:19 Lymph % (Auto) 11.6 % (13.4-35.0) L 03/09/16 08:19 Isabella % (Auto) 13.7 % (0.0-7.3) H 03/09/16 08:19 Eos % (Auto) 9.7 % (0.0-4.3) H 03/09/16 08:19 Baso % (Auto) 1.0 % (0.0-1.8) 03/09/16 08:19 Lymph # 0.4 K/mm3 (1.2-5.4) L 03/09/16 08:19 Isabella # 0.4 K/mm3 (0.0-0.8) 03/09/16 08:19 Eos # 0.3 K/mm3 (0.0-0.4) 03/09/16 08:19 Baso # 0.0 K/mm3 (0.0-0.1) 03/09/16 08:19 Add Manual Diff Complete 03/07/16 15:37 Total Counted 100 03/07/16 15:37 Seg Neutrophils % 64.0 % (40.0-70.0) 03/09/16 08:19 Seg Neuts % (Manual) 67.0 % (40.0-70.0) 03/07/16 15:37 Band Neutrophils % 0 % 03/07/16 15:37 Lymphocytes % (Manual) 8.0 % (13.4-35.0) L 03/07/16 15:37 Reactive Lymphs % (Man) 0 % 03/07/16 15:37 Monocytes % (Manual) 16.0 % (0.0-7.3) H 03/07/16 15:37 Eosinophils % (Manual) 7.0 % (0.0-4.3) H 03/07/16 15:37 Basophils % (Manual) 2.0 % (0.0-1.8) H 03/07/16 15:37 Metamyelocytes % 0 % 03/07/16 15:37 Myelocytes % 0 % 03/07/16 15:37 Promyelocytes % 0 % 03/07/16 15:37 Blast Cells % 0 % 03/07/16 15:37 Nucleated RBC % Not Reportable 03/07/16 15:37 Seg Neutrophils # 2.1 K/mm3 (1.8-7.7) 03/09/16 08:19 Seg Neutrophils # Man 2.0 K/mm3 (1.8-7.7) 03/07/16 15:37 Band Neutrophils # 0.0 K/mm3 03/07/16 15:37 Lymphocytes # (Manual) 0.2 K/mm3 (1.2-5.4) L 03/07/16 15:37 Abs React Lymphs (Man) 0.0 K/mm3 03/07/16 15:37 Monocytes # (Manual) 0.5 K/mm3 (0.0-0.8) 03/07/16 15:37 Eosinophils # (Manual) 0.2 K/mm3 (0.0-0.4) 03/07/16 15:37 Basophils # (Manual) 0.1 K/mm3 (0.0-0.1) 03/07/16 15:37 Metamyelocytes # 0.0 K/mm3 03/07/16 15:37 Myelocytes # 0.0 K/mm3 03/07/16 15:37 Promyelocytes # 0.0 K/mm3 03/07/16 15:37 Blast Cells # 0.0 K/mm3 03/07/16 15:37 WBC Morphology Not Reportable 03/07/16 15:37 Hypersegmented Neuts Not Reportable 03/07/16 15:37 Hyposegmented Neuts Not Reportable 03/07/16 15:37 Hypogranular Neuts Not Reportable 03/07/16 15:37 Smudge Cells Not Reportable 03/07/16 15:37 Toxic Granulation Not Reportable 03/07/16 15:37 Toxic Vacuolation Not Reportable 03/07/16 15:37 Dohle Bodies Not Reportable 03/07/16 15:37 Pelger-Huet Anomaly Not Reportable 03/07/16 15:37 Jimbo Rods Not Reportable 03/07/16 15:37 Platelet Estimate Consistent w auto 03/07/16 15:37 Clumped Platelets Not Reportable 03/07/16 15:37 Plt Clumps, EDTA Not Reportable 03/07/16 15:37 Large Platelets Not Reportable 03/07/16 15:37 Giant Platelets Not Reportable 03/07/16 15:37 Platelet Satelliting Not Reportable 03/07/16 15:37 Plt Morphology Comment Not Reportable 03/07/16 15:37 RBC Morphology Not Reportable 03/07/16 15:37 Dimorphic RBCs Not Reportable 03/07/16 15:37 Polychromasia Not Reportable 03/07/16 15:37 Hypochromasia 1+ 03/07/16 15:37 Poikilocytosis Not Reportable 03/07/16 15:37 Anisocytosis 1+ 03/07/16 15:37 Microcytosis Not Reportable 03/07/16 15:37 Macrocytosis Not Reportable 03/07/16 15:37 Spherocytes Not Reportable 03/07/16 15:37 Pappenheimer Bodies Not Reportable 03/07/16 15:37 Sickle Cells Not Reportable 03/07/16 15:37 Target Cells Not Reportable 03/07/16 15:37 Tear Drop Cells Not Reportable 03/07/16 15:37 Ovalocytes Not Reportable 03/07/16 15:37 Helmet Cells Not Reportable 03/07/16 15:37 [place] Bodies Not Reportable 03/07/16 15:37 Touchet Rings Not Reportable 03/07/16 15:37 Erich Cells Not Reportable 03/07/16 15:37 Bite Cells Not Reportable 03/07/16 15:37 Crenated Cell Not Reportable 03/07/16 15:37 Elliptocytes Not Reportable 03/07/16 15:37 Acanthocytes (Spur) Not Reportable 03/07/16 15:37 Rouleaux Not Reportable 03/07/16 15:37 Hemoglobin C Crystals Not Reportable 03/07/16 15:37 Schistocytes Not Reportable 03/07/16 15:37 Malaria parasites Not Reportable 03/07/16 15:37 Venkat Bodies Not Reportable 01/01/17 15:37 Hem Pathologist Commnt No 03/07/16 15:37 PT 13.6 Sec. (12.2-14.9) 03/05/16 03:37 INR 1.05 (0.87-1.13) 03/05/16 03:37 APTT 40.6 Sec. (24.2-36.6) H 03/05/16 03:37 Sodium 136 mmol/L (137-145) L 03/09/16 08:19 Potassium 5.0 mmol/L (3.6-5.0) 03/09/16 08:19 Chloride 94.4 mmol/L (98-107) L 03/09/16 08:19 Carbon Dioxide 25 mmol/L (22-30) 03/09/16 08:19 Anion Gap 22 mmol/L 03/09/16 08:19 BUN 50 mg/dL (9-20) H 03/09/16 08:19 Creatinine 14.4 mg/dL (0.8-1.5) H 03/09/16 08:19 Estimated GFR 4 ml/min 03/09/16 08:19 BUN/Creatinine Ratio 3.47 % 03/09/16 08:19 Glucose 70 mg/dL (75-100) L 03/09/16 08:19 POC Glucose 103 (70-105) 03/09/16 16:11 Calcium 8.4 mg/dL (8.4-10.2) 03/09/16 08:19 Plasma/Serum Alcohol < 0.01 gm% (0-0.07) 03/05/16 03:37 Hepatitis A IgM Ab Nonreactive (NonReactive) 03/09/16 08:19 Hep Bs Antigen Non-reactive (Negative) 03/09/16 08:19 Hep B Core IgM Ab Non-reactive (NonReactive) 03/09/16 08:19 Hepatitis C Antibody Non-reactive (NonReactive) 03/09/16 08:19 Blood Type O POSITIVE 03/09/16 09:50 Antibody Screen Negative 03/09/16 09:50 Crossmatch See Detail 03/09/16 09:50
--- NOTE | 2016-03-12 08:18 | Progress Note ---
Assessment and Plan - Patient Problems (1) End stage renal disease Current Visit: Yes Status: Acute Plan to address problem: Continue hemodialysis three times a week. Patient was last dialyzed yesterday. Per CM he has a chair at [email or web address]. (2) Hyperkalemia Current Visit: Yes Status: Acute Plan to address problem: Improved. 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 (4) Anemia Current Visit: Yes Status: Acute Qualifiers: Other causes of anemia: chronic disease, kidney Plan to address problem: S/p PRBC. Epogen. Patient refused blood draw for the past few days. (5) Hypertension Current Visit: Yes Status: Acute (6) Non-compliance with renal dialysis Current Visit: Yes Status: Acute Plan to address problem: Compliance encouraged. Subjective Date of service: 03/12/16 Principal diagnosis: AVF/AVG malfunction Interval history: Patient is feeling better. Objective - Vital Signs Vital signs: Vital Signs - 12hr 03/11/16 03/12/16 03/12/16 21:58 01:12 05:03 Temperature 98.7 F 98.7 F 98.1 F Pulse Rate [ 95 H 94 H 96 H Right Radial] Respiratory 18 18 19 Rate Blood Pressure 123/70 112/68 149/86 [Right Arm] O2 Sat by Pulse 99 94 97 Oximetry - General Appearance General appearance: well-developed, well-nourished, other (no distress, left groin hemodialysis catheter) EENT: PERRL, mucous membranes moist, hearing intact, vision intact Neck: JVD, supple Respiratory: Present: Clear to Ascultation Cardiology: regular, S1S2, no murmurs Gastrointestinal: normoactive bowel sounds, no tenderness, no distended, no guarding Integumentary: no rash, warm and dry Neurologic: no focal deficit, no asterixis, alert and oriented x3, CN 3-12 intact Musculoskeletal: other (no edema, left FA AVF) Psychiatric: mood/affect appropriate, cooperative - Lab 03/09/16 08:19 03/09/16 08:19 Most recent lab results Calcium 8.4 mg/dL (8.4-10.2) 03/09/16 08:19
--- NOTE | 2016-03-12 14:12 | Discharge Summary ---
Providers - Providers Date of Admission: 03/05/16 05:27 Date of discharge: 03/12/16 Attending physician: ALLEN DE ANDA 03/05/16 05:28 Consult to Physician [CONS] Routine Consulting Provider: WHITLEY MAGANA Reason For Exam: ESRD needing hemodialysis Place consult to:: Samantha GONZALES Notified:: yes Was contact made?: Yes 03/05/16 06:07 Consult to Physician [CONS] Routine Consulting Provider: SAL RODRIGUEZ Reason For Exam: bleed av graft, pt known to you Place consult to:: Nikki GONZALES Notified:: yes Was contact made?: Yes Primary care physician: [facility] Hospitalization Condition: Stable Disposition: DISCHARGED TO HOME OR SELFCARE Time spent for discharge: 35 min Core Measure Documentation - Palliative Care Palliative Care/ Comfort Measures: Not Applicable Exam - Constitutional Vitals: Temp Pulse Resp BP Pulse Ox 98.3 F 93 H 18 128/75 95 03/12/16 11:43 03/12/16 11:43 03/12/16 11:43 03/12/16 11:43 03/12/16 09:11 Plan Activity: advance as tolerated Diet: low cholesterol, low salt, renal Follow up with: PRIMARY MD JULIAN [Primary Care Provider] - 3-5 Days WHITLEY MAGANA MD [Staff Physician] - 7 Days SAL RODRIGUEZ MD [Staff Physician] - 7 Days Prescriptions: oxyCODONE /ACETAMINOPHEN [Percocet 5/325] 1 tab PO Q6HR PRN #20 tablet PRN Reason: Pain
[2016-03-12 17:25] VITALS: BP 136/77
== END 2016-03-12 18:50 | disposition home or self-care (01) | DRG 252 ==
LOC: EDBD → ED 03:27 → 3A 05:27 → 4A 18:09
PROVIDERS: ADMIT Internal Medicine; ATTEND Internal Medicine
PROC: 5A1D60Z (ICD-10-PCS; 2016-03-05)
PROC: 031C09F Bypass Left Radial Artery to Lower Arm Vein with Autologous Venous Tissue, Open Approach (ICD-10-PCS; principal; 2016-03-06)
PROC: 03R Upper Arteries, Replacement (ICD-10-PCS; principal; 2016-03-06)
PROC: 05BF3ZZ Excision of Left Cephalic Vein, Percutaneous Approach (ICD-10-PCS; 2016-03-06)
PROC: 30233N1 Transfusion of Nonautologous Red Blood Cells into Peripheral Vein, Percutaneous Approach (ICD-10-PCS; 2016-03-06)
PROC: 03PY07Z Removal of Autologous Tissue Substitute from Upper Artery, Open Approach (ICD-10-PCS; 2016-03-09)
DX: T82.868A Thrombosis due to vascular prosthetic devices, implants and grafts, initial encounter (principal); N18.6 End stage renal disease; D62 Acute posthemorrhagic anemia; D61.818 Other pancytopenia; I13.2 Hypertensive heart and chronic kidney disease with heart failure and with stage 5 chronic kidney disease, or end stage renal disease; T82.838A Hemorrhage due to vascular prosthetic devices, implants and grafts, initial encounter; E87.5 Hyperkalemia; I50.9 Heart failure, unspecified; D63.1 Anemia in chronic kidney disease; Y83.8 Other surgical procedures as the cause of abnormal reaction of the patient, or of later complication, without mention of misadventure at the time of the procedure; Z82.49 Family history of ischemic heart disease and other diseases of the circulatory system; Z91.15 Patient's noncompliance with renal dialysis; Q27.31 Arteriovenous malformation of vessel of upper limb; Y92.89 Other specified places as the place of occurrence of the external cause
CPT/HCPCS: 36415; 36430; 80048; 80074; 80320; 82962; 85007; 85025; 85610; 85730; 86850; 86900; 86901; 86920; 87040; 87075; 87116; 93005; 93010; 94760; 96374; 96375; A6021; C1757; G0480; J0360; J0610; J0692; J0885; J1100; J1170; J1644; J1815; J2270; J2370; J2405; J2501; J2704; J3010; J3370; J3490; J7030; J7040; P9016